=== PATIENT | female | born 1950 | race Caucasian/White ===

== ENCOUNTER 2018-12-05 11:24 | Inpatient (IN) ==
[2018-12-05] MEDS ORDERED: Sodium Chlor 0.9% Inj 500 ML IV.SIG SCH (12:00)
--- NOTE | 2018-12-05 12:05 | ED ---
HPI General Chief Complaint: Dizziness Stated Complaint: Dizzy/weakness/cough x 1 mo Time Seen by Provider: 12/05/18 11:47 Source: patient Mode of arrival: ambulatory Limitations: no limitations History of Present Illness HPI Narrative: Patient is a 68 yof PMHx sig for hypothyroidism and diabetes, recently taken off jiardance (approx one month ago) who presents with 1.5-2 months of generalized weakness, lightheadedness. Her PCP took her off the jiardance thinking that may have been a contributing factor but her symptoms have not changed. She has had significant weight loss and some decreased appetite. No chest pain nor abd pain. She does have slight dyspnea "feels winded" more easily while "doing anything, I'm just so tired." No leg swelling. complaint: Reports lightheadedness Onset (ago): month(s) Timing: gradual onset Description: Reports lightheadedness History of similar episodes: No History of trauma: No Severity: mild Relieving factors: nothing Associated symptoms: Reports other Related Data Home Medications Medication Instructions Recorded Confirmed aspirin [Aspir-Low] 81 mg PO DAILY 12/05/18 12/05/18 atorvastatin 40 mg PO QPM 12/05/18 12/05/18 calcium carbonate-vitamin D3 12/05/18 [Calcium 600 + D(3)] levothyroxine 25 mcg PO DAILY 12/05/18 12/05/18 lisinopril 5 mg PO DAILY 12/05/18 12/05/18 multivitamin 1 tab PO DAILY 12/05/18 12/05/18 omeprazole 40 mg PO DAILY 12/05/18 12/05/18 sitagliptin-metformin [Janumet] 1 tab PO BID 12/05/18 12/05/18 vitamin O97-ogpeg acid 1 tab PO DAILY 12/05/18 12/05/18 Allergies Allergy/AdvReac Type Severity Reaction Status Date / Time Penicillins Allergy Severe Rash Verified 12/05/18 11:36 Review of Systems ROS: all other systems reviewed are negative [facility] Medical History Medical History History of diverticulitis (Acute) History of high cholesterol (Acute) History of hypothyroidism (Acute) Hx of diabetes mellitus (Acute) Surgical History Surgical History History of tonsillectomy and adenoidectomy (Acute) Hx laparoscopic cholecystectomy (Acute) Social History Social History Substance History: No History of Abuse Second Hand Smoke Exposure: No Smoking Status: Former smoker Tobacco Type: E-Cigarettes How Often Do You Have a Drink Containing Alcohol: 2 to 4 times a month Recent Travel in [facility] within the Last 8 Weeks: No Recent Out of Country Travel within the Last 8 Weeks: No Immunization History Tetanus Immunization: <5 Years Exam Narrative Exam Narrative: GENERAL: Well-appearing elderly female in no acute distress SKIN: Focused skin assessment warm/dry. No rashes. HEAD: Atraumatic. Normocephalic. EYES: Pupils equal and round. No scleral icterus. No injection or drainage. ENT: No nasal bleeding or discharge. Mucous membranes pink and moist. NECK: Trachea midline. No JVD. CARDIOVASCULAR: Regular rate and rhythm. No murmur appreciated. Intact and equal peripheral pulses. RESPIRATORY: No accessory muscle use. Diminished breath sounds on the left. GASTROINTESTINAL: Abdomen soft, non-tender, nondistended. Hepatic and splenic margins not palpable. No masses palpated. MUSCULOSKELETAL: No obvious deformities. No clubbing. No cyanosis. No edema. NEUROLOGICAL: Awake and alert. No obvious cranial nerve deficits. Motor grossly within normal limits, normal strength. Normal sensation. Normal speech. PSYCHIATRIC: Appropriate mood and affect; insight and judgment normal. Course Initial Documented Vital Signs Temperature 97.7 F 12/05/18 11:31 Pulse Rate 103 H 12/05/18 11:31 Respiratory Rate 16 12/05/18 11:31 Blood Pressure 161/72 H 12/05/18 11:31 Pulse Oximetry 97 12/05/18 11:31 Last Documented Vital Signs Temperature 97.7 F 12/05/18 11:31 Pulse Rate 85 12/05/18 14:18 Respiratory Rate 16 12/05/18 14:18 Blood Pressure 144/76 H 12/05/18 14:18 Pulse Oximetry 95 12/05/18 14:18 Medical Decision Making MDM Narrative Medical decision making narrative: Patient is a 68-year-old female who presents with complaint of lightheadedness, malaise, weight loss, cough for the last 2 months with some dyspnea on exertion. She is hemodynamically stable in the emergency department with a normal pulse ox. Labs are relatively unremarkable but x-ray shows essentially white out of the left lung. CT of the chest was obtained which shows a large mass with effusion. I spoke with interventional radiology to determine if they could do a thoracentesis at the [facility] versus [place] and they stated that it was better if the patient would be at the [facility] for thoracentesis by them. She will be admitted for further evaluation and management. Medical Screen Exam Complete: Yes Emergency Medical Condition: Yes Differential Diagnosis Differential Diagnosis: Differential diagnosis includes but not limited to dehydration, anemia, acute kidney injury, cancer. Medical Records Medical records reviewed: Yes I reviewed the patient's medical records. Lab Data Lab results reviewed: Yes I reviewed the patient's lab results. Result diagrams: 12/05/18 12:00 12/05/18 12:00 Lab Results 12/05/18 12/05/18 12/05/18 Range/Units 12:00 12:00 14:50 CBC w Diff Auto diff final WBC 9.6 (4.0-11.0) th/mm3 RBC 4.92 (4.00-5.30) mil/mm3 Hgb 13.0 (11.6-15.3) gm/dL Hct 40.8 (35.0-46.0) % MCV 82.9 (80.0-100.0) fL MCH 26.4 L (27.0-34.0) pg MCHC 31.9 L (32.0-36.0) % RDW 14.3 (11.6-17.2) % Plt Count 280 (150-450) th/mm3 MPV 9.8 (7.0-11.0) fL Neut % (Auto) 73.6 H (16.0-70.0) % Lymph % (Auto) 15.8 (9.0-44.0) % Faulk % (Auto) 8.5 H (0.0-8.0) % Eos % (Auto) 1.4 (0.0-4.0) % Baso % (Auto) 0.7 (0.0-2.0) % Neut # (Auto) 7.1 (1.8-7.7) th/mm3 Lymph # (Auto) 1.5 (1.0-4.8) th/mm3 Faulk # (Auto) 0.8 (0.0-0.9) th/mm3 Eos # (Auto) 0.1 (0.0-0.4) th/mm3 Baso # (Auto) 0.1 (0.0-0.2) th/mm3 WBC Differential . Differential Comment . Sodium 135 L (136-145) meq/L Potassium 3.8 (3.5-5.1) meq/L Chloride 99 (98-107) meq/L Carbon Dioxide 30.1 (21.0-32.0) meq/L Anion Gap 6 (5-15) meq/L BUN 10 (7-18) mg/dL Creatinine 0.54 (0.50-1.00) mg/dL Estimated GFR Greater than 89 (>89) mL/min Random Glucose 169 H (74-106) mg/dL Calcium 8.9 (8.5-10.1) mg/dL Magnesium 1.6 (1.5-2.5) mg/dL Total Bilirubin 0.4 (0.2-1.0) mg/dL AST 12 L (15-37) U/L ALT 21 (10-53) U/L Alkaline Phosphatase 56 (45-117) U/L Troponin I Less than 0.02 L (0.02-0.05) ng/mL Total Protein 7.3 (6.4-8.2) g/dL Albumin 3.5 (3.4-5.0) g/dL TSH 1.690 (0.358-3.740) uIU/mL Ur Collection Type Clean catch Urine Color Yellow (Yellw/Straw) Urine Clarity Clear (Clear) Urine pH 6.5 (5.0-8.5) Ur Specific [place] Less/equal 1.005 (1.002-1.035) Urine Protein Negative (Neg-Trace) mg/dL Urine Glucose (UA) Negative (Negative) mg/dL Urine Ketones Negative (Negative) mg/dL Urine Occult Blood Negative (Negative) Urine Nitrate Negative (Negative) Urine Bilirubin Negative (Negative) Urine Urobilinogen 0.2 (Less than 2) mg/dL Ur Leukocyte Esterase Negative (Negative) Urine RBC 0-3 (0-3) /hpf Urine WBC 0-5 (0-5) /hpf Ur Squamous Epith Cells 0-5 (0-5) /hpf Micro UA Comment Culture not ind Ur Microscopic Review Microscopic reviewed Urine Culture Comments Culture not ind Imaging Data Attestation: I personally reviewed and interpreted this imaging study as follows : Radiologist's impression: Chest X-Ray 12/05/18 11:56 CONCLUSION: Moderate left pleural effusion and diffuse left lung consolidation. Central obstructing lesion cannot be excluded. CT chest may be warranted after possible thoracentesis. Head CT 12/05/18 11:56 CONCLUSION: 1. Cerebral atrophy and chronic ischemic small vessel vasculopathy. 2. Old right basal ganglia lacunar infarct. . . Chest CTA 12/05/18 12:30 CONCLUSION: 1. Large central obstructing mass left hilar region extending into the mediastinum measuring over 7 cm in dimension. 2. Consolidation/atelectasis of almost the entire left lung. 3. Small to moderate left pleural effusion. 4. No pulmonary embolism. ECG Data EKG Prior to Arrival: No Attestation: I personally reviewed and interpreted this ECG as follows: Discharge Plan Discharge Disposition Patient Disposition: Transfer To [facility] [place] Discharge Condition Condition: Stable Discharge Details Diagnosis: Lung mass, Pleural effusion on left Physicians Team ED Provider: Stephanie Howe Primary Care Provider: Sidney Thompson Attending Provider: Kasi Go Other Providers: Anupama Tavares ; Jerson Galindo Status ED Status: Admitted Patient
[2018-12-05 12:07] LABS: Baso # (Auto) 0.1 th/mm3 (0.0-0.2); Baso % (Auto) 0.7 % (0.0-2.0); Eos # (Auto) 0.1 th/mm3 (0.0-0.4); Eos % (Auto) 1.4 % (0.0-4.0); Hematocrit 40.8 % (35.0-46.0); Lymph # (Auto) 1.5 th/mm3 (1.0-4.8); Lymph % (Auto) 15.8 % (9.0-44.0); Mean Corpuscular HGB Conc 31.9 % (32.0-36.0); Mean Corpuscular Hemoglobin 26.4 pg (27.0-34.0); Mean Corpuscular Volume 82.9 fL (80.0-100.0); Mean Platelet Volume 9.8 fL (7.0-11.0); Mono # (Auto) 0.8 th/mm3 (0.0-0.9); Mono % (Auto) 8.5 % (0.0-8.0); Neut # (Auto) 7.1 th/mm3 (1.8-7.7); Neut % (Auto) 73.6 % (16.0-70.0); Platelet Count 280 th/mm3 (150-450); Red Blood Count 4.92 mil/mm3 (4.00-5.30); Red Cell Distribution Width 14.3 % (11.6-17.2); White Blood Count 9.6 th/mm3 (4.0-11.0)
[2018-12-05 12:14] LABS: Chloride 99 meq/L (98-107); Potassium 3.8 meq/L (3.5-5.1); Sodium 135 meq/L (136-145)
[2018-12-05 12:17] LABS: Albumin 3.5 g/dL (3.4-5.0); Anion Gap 6 meq/L (5-15); Blood Urea Nitrogen 10 mg/dL (7-18); Calcium 8.9 mg/dL (8.5-10.1); Carbon Dioxide 30.1 meq/L (21.0-32.0); Glucose,Random 169 mg/dL (74-106); Magnesium 1.6 mg/dL (1.5-2.5)
[2018-12-05 12:20] LABS: Alanine Aminotransferase 21 U/L (10-53); Aspartate Aminotransferase 12 U/L (15-37); Glomerular Filtration Rate Greater Than 89 mL/min (>89)
[2018-12-05 12:22] LABS: Total Protein 7.3 g/dL (6.4-8.2)
[2018-12-05 12:23] LABS: Alkaline Phosphatase 56 U/L (45-117)
--- NOTE | 2018-12-05 12:31 | XR ---
EXAM DATE: 12/05/2018 12:23 PM EST AGE/SEX: 68 years / Female INDICATIONS: . Dizzy. CLINICAL DATA: This is the patient's initial encounter. Patient reports that signs and symptoms have been present for 1 month and indicates a pain score of 0/10. MEDICAL/SURGICAL HISTORY: None. None. COMPARISON: No prior exams available for comparison. FINDINGS: PA and lateral views of the chest demonstrate moderate left pleural effusion and left lung consolidat ion. Right lung is clear. The cardiomediastinal contours are unremarkable. Osseous structures are int act. CONCLUSION: Moderate left pleural effusion and diffuse left lung consolidation. Central obstructing lesion cannot be excluded. CT chest may be warranted after possible thoracentesis. Electronically signed by: Ramon Tapia MD Board Certified Radiologist 12/05/2018 12:29 PM EST
--- NOTE | 2018-12-05 13:26 | CT ---
EXAM DATE: 12/05/2018 1:19 PM EST AGE/SEX: 68 years / Female INDICATIONS: Weakness 1 motnh CLINICAL DATA: This is the patient's initial encounter. Patient reports that signs and symptoms have been present for 1 month and indicates a pain score of 0/10. MEDICAL/SURGICAL HISTORY: Diverticulitis. Diabetes. Hypothyroidism. Cholecystectomy. Tonsillecto my. RADIATION DOSE: 9.43 CTDI (mGy) COMPARISON: No prior exams available for comparison. TECHNIQUE: Volumetric scanning was performed using a multi-row detector CT scanner during bolus infu [place] of 74ML ml Omnipaque 350 (iohexol) nonionic water-soluble contrast as a single exam dose. The d margot was post processed with a variety of visualization algorithms including full volume maximum inten sity projection and sliding thin slab reformation. Using automated exposure control and adjustment of the mA and/or kV according to patient size, radiation dose was kept as low as reasonably achievable to obtain optimal diagnostic quality images. DICOM format image data is available electronically for review and comparison. FINDINGS: Pulmonary Arteries: No filling defects are seen in the pulmonary arteries out to the subsegmental ve ssels. The left and right pulmonary arteries are normal in diameter. Lung: Consolidation/atelectasis throughout the majority of the left lung secondary to an obstructing central mass which is contiguous with subcarinal mediastinal adenopathy measuring approximately 7.0 x 6.2 cm. Portions of the left lower lobe and lingular rhonchus or obstructed.. 7 mm nodule in the ri ght upper lobe posterior medially. Effusion: Small moderate left pleural effusion. Mediastinum: No evidence of mediastinal or hilar adenopathy. Other: The axilla is unremarkable. Extensive enlargement of the thyroid lobes likely including shai s. CONCLUSION: 1. Large central obstructing mass left hilar region extending into the mediastinum measuring over 7 cm in dimension. 2. Consolidation/atelectasis of almost the entire left lung. 3. Small to moderate left pleural effusion. 4. No pulmonary embolism. Electronically signed by: Ramon Tapia MD Board Certified Radiologist 12/05/2018 1:25 PM EST
--- NOTE | 2018-12-05 13:29 | CT ---
EXAM DATE: 12/05/2018 1:17 PM EST AGE/SEX: 68 years / Female INDICATIONS: Dizziness and Weakness 1 month CLINICAL DATA: This is the patient's initial encounter. Patient reports that signs and symptoms have been present for 1 month and indicates a pain score of 0/10. MEDICAL/SURGICAL HISTORY: Diverticulitis. Diabetes. Hypothyroidism. Cholecystectomy. Tonsillecto my. RADIATION DOSE: 59.97 CTDI (mGy) COMPARISON: No prior exams available for comparison. TECHNIQUE: CT of the head without contrast. Using automated exposure control and adjustment of the mA and/or kV according to patient size, radiation dose was kept as low as reasonably achievable to ob tain optimal diagnostic quality images. DICOM format image data is available electronically for revi ew and comparison. FINDINGS: Cerebrum: The ventricles are normal for age. Cerebral atrophy. Areas low-density in the white matter . Old right basal ganglia lacunar infarcts. No evidence of midline shift, mass lesion, hemorrhage or acute infarction. No extraaxial fluid collections are seen. Posterior Fossa: The cerebellum and brainstem are intact. The 4th ventricle is midline. The cerebe llopontine angle is unremarkable. Extracranial: The visualized portion of the orbits is intact. Skull: The calvaria is intact. No evidence of skull fracture. CONCLUSION: 1. Cerebral atrophy and chronic ischemic small vessel vasculopathy. 2. Old right basal ganglia lacunar infarct. . . Electronically signed by: Ramon Tapia MD Board Certified Radiologist 12/05/2018 1:27 PM EST
--- NOTE | 2018-12-05 14:11 | ECG ---
Date Performed: 12/05/2018 Time Performed: 12:02:01 PTAGE: 68 years EKG: Sinus rhythm POSSIBLE LEFT ATRIAL ENLARGEMENT BORDERLINE ECG NO PREVIOUS TRACING DOCTOR: Michael Singletary Interpretating Date/Time 12/05/2018 14:08:47
[2018-12-05] MEDS ORDERED: Acetaminophen 325 MG Tablet PO PRN (14:32)
[2018-12-05] MEDS ORDERED: Dextrose 50% in Water 50 ML Vial IV.PUSH PRN (14:37)
[2018-12-05 14:53] LABS: Bilirubin,Urine Negative (Negative); Clarity,Urine Clear (Clear); Color,Urine Yellow (Yellw/Straw); Glucose,Urine (UA) Negative (Negative); Leukocyte Esterase,Urine Negative (Negative); Nitrite,Urine Negative (Negative); PH,Urine 6.5 (5.0-8.5); Specific Gravity,Urine Less/Equal 1.005 (1.002-1.035); Urobilinogen,Urine 0.2 mg/dL (Less than 2)
[2018-12-05 15:01] LABS: RBC,Urine 0-3 /hpf (0-3); Squamous Epithelial Cell,Urine 0-5 /hpf (0-5); WBC,Urine 0-5 /hpf (0-5)
[2018-12-05] MEDS: Sod Chloride 0.9% Inj 1,000 ML IV.CONT SCH (15:13)
--- NOTE | 2018-12-05 15:28 | P.HPIM ---
History of Present Illness Primary Care Physician: Sidney Thompson Chief Complaint: Weight Loss, Dyspnea History of Present Illness: Mrs. Haines is a 68 year old female. She came to the hospital secondary to weakness and shortness of breath. Chest imaging shows complete whiteout of the left lung. Additional finding is a 7 cm mass at the mediastinum which may be causing the left lung findings. She has a past history of smoking for the past 2 years she is quit tobacco use and uses an e- cigarette. She has not experienced any chest pain. No abnormal rashes or lymphadenopathy. Weight loss has been approximate 30 pounds. No fevers. No diaphoresis. Inpatient Certification Inpatient Certification: I certify that the inpatient services were ordered in accordance with Medicare regulations governing the order. This includes certification that hospital inpatient services are reasonable and necessary and in the case of services not specified as inpatient-only under 42 CFR 419.22(n), that they are appropriately provided as inpatient services in accordance to with the 2-midnight benchmark under 43 CFR 412.3(e) Estimated Total Length of Stay (Days): 5 Plans for Post Hospital Care: Home Review of Systems Constitutional: No fevers, no chills no night sweats, fatigue, weakness, weight loss Eyes: No eye pain, no blurry vision, no loss of vision ENT: No sore throat, no ear pain, no rhinorrhea Cardiovascular: No chest pain, no tachycardia, no palpitations, no syncope Respiratory: No wheezing, no cough, shortness of breath Gastrointestinal: No abdominal pain, no black tarry stools, no bright red blood per rectum, no vomiting, no diarrhea Musculoskeletal: No joint pain, no muscle cramps, no stiffness Integumentary: No rash, no ulcers, no drainage Neurologic: No sensory loss, no loss of motor function, no dizziness Psychiatric: No behavioral changes, no hallucinations, no suicidal ideations [facility] Medical History Medical History History of diverticulitis (Acute) History of high cholesterol (Acute) History of hypothyroidism (Acute) Hx of diabetes mellitus (Acute) Surgical History Surgical History History of tonsillectomy and adenoidectomy (Acute) Hx laparoscopic cholecystectomy (Acute) Family History Family History Father Coronary artery disease Other Osteoarthritis Social History Social History Substance History: No History of Abuse Second Hand Smoke Exposure: No Smoking Status: Former smoker Tobacco Type: E-Cigarettes How Often Do You Have a Drink Containing Alcohol: 2 to 4 times a month Recent Travel in [facility] within the Last 8 Weeks: No Recent Out of Country Travel within the Last 8 Weeks: No Immunization History Tetanus Immunization: <5 Years Medications and Allergies Allergies Allergy/AdvReac Type Severity Reaction Status Date / Time Penicillins Allergy Severe Rash Verified 12/05/18 11:36 Home Medications Medication Instructions Recorded Confirmed Type aspirin [Aspir-Low] 81 mg PO DAILY 12/05/18 12/05/18 History atorvastatin 40 mg PO QPM 12/05/18 12/05/18 History calcium carbonate-vitamin D3 12/05/18 History [Calcium 600 + D(3)] levothyroxine 25 mcg PO DAILY 12/05/18 12/05/18 History lisinopril 5 mg PO DAILY 12/05/18 12/05/18 History multivitamin 1 tab PO DAILY 12/05/18 12/05/18 History omeprazole 40 mg PO DAILY 12/05/18 12/05/18 History sitagliptin-metformin [Janumet] 1 tab PO BID 12/05/18 12/05/18 History vitamin Z47-kbglc acid 1 tab PO DAILY 12/05/18 12/05/18 History Active Medications: Active Medications Acetaminophen (Tylenol) 650 mg PO Q4H PRN PRN Reason: Temp > 100.4 Hydrocodone Bitart/Acetaminophen ([place] 10/325) 1 tab PO Q4H PRN PRN Reason: Pain 7 to 10 Hydrocodone Bitart/Acetaminophen ([place] 5/325) 1 tab PO Q4H PRN PRN Reason: Pain 3 to 6 Al Hydroxide/Mg Hydroxide (Milk Of Magnesia Liq) 30 ml PO Q12H PRN PRN Reason: Mild Constipation Dextrose (D50w Vial) 50 ml IV.PUSH UNSCH PRN PRN Reason: PER HYPOGLYCEMIA PROTOCOL Glucagon (Glucagon Inj) 1 mg OTHER PRN PRN PRN Reason: for Hypoglycemia Protocol Sodium Chloride (Ns Inj) 1,000 mls @ 80 mls/hr IV.CONT .[id number] CHRISTIANO Last Admin: 12/05/18 15:13 Dose: 80 mls/hr Insulin Aspart (Novolog Insulin Correctional Sugar Inj) 0 unit SQ ACHS CHRISTIANO; Protocol Ondansetron HCl (Zofran Inj) 4 mg IV.PUSH Q6H PRN PRN Reason: NAUSEA OR VOMITING Sodium Chloride (Ns Flush) 2 ml IV.FLUSH PRN PRN PRN Reason: FLUSH AFTER USING IV ACCESS Sodium Chloride (Ns Flush) 2 ml IV.FLUSH BID CHRISTIANO Sodium Chloride (Ns Flush) 2 ml IV.FLUSH PRN PRN PRN Reason: FLUSH AFTER USING IV ACCESS Physical Exam Vital signs: Vital Signs 12/05/18 11:31 12/05/18 11:56 12/05/18 14:18 Temperature 97.7 F Pulse Rate 103 H 85 Respiratory Rate 16 16 Blood Pressure 161/72 H 144/76 H Pulse Oximetry 97 95 95 Intake & Output 12/04/18 12/05/18 12/05/18 18:59 06:59 18:59 Intake Total 500 / 500 Balance 500 / 500 Weight 90.5 kg Intake: IV 500 / 500 NS Inj 500 ML @ 1000 mls/hr IV. 500 / 500 SIG BOLUS CHRISTIANO Rx#:[id number] Narrative: GENERAL: NAD, A&Ox3 HEAD: Normocephalic. NECK: Supple, trachea midline. No lymphadenopathy. EYES: No scleral icterus. No injection or drainage. CARDIOVASCULAR: Regular rate and rhythm without murmurs, gallops, or rubs. RESPIRATORY: Breath sounds are absent on the left. No accessory muscle use. GASTROINTESTINAL: Abdomen soft, non-tender, nondistended. MUSCULOSKELETAL: No cyanosis, or edema. SKIN: Warm and dry. NEURO: No focal neurological deficits. Results Labs CBC & Chem 7: 12/05/18 12:00 12/05/18 12:00 Imaging Impressions Chest X-Ray 12/05/18 11:56 CONCLUSION: Moderate left pleural effusion and diffuse left lung consolidation. Central obstructing lesion cannot be excluded. CT chest may be warranted after possible thoracentesis. Head CT 12/05/18 11:56 CONCLUSION: 1. Cerebral atrophy and chronic ischemic small vessel vasculopathy. 2. Old right basal ganglia lacunar infarct. . . Chest CTA 12/05/18 12:30 CONCLUSION: 1. Large central obstructing mass left hilar region extending into the mediastinum measuring over 7 cm in dimension. 2. Consolidation/atelectasis of almost the entire left lung. 3. Small to moderate left pleural effusion. 4. No pulmonary embolism. Caprini VTE Risk Assessment Caprini VTE Risk Assessment: No/Low Risk (score <= 1) Caprini Risk Assessment Model: Point Value = 1 Point Value = 2 Point Value = 3 Point Value = 5 Age 41-60 Minor surgery BMI > 25 kg/m2 Swollen legs Varicose veins or History of unexplained or recurrent spontaneous Oral contraceptives or hormone replacement Sepsis (< 1 month) Serious lung disease, including pneumonia (< 1 month) Abnormal pulmonary function Acute myocardial infarction Congestive heart failure (< 1 month) History of inflammatory bowel disease Medical patient at bed rest Age 61-74 Arthroscopic surgery Major open surgery (> 45 min) Laparoscopic surgery (> 45 min) Malignancy Confined to bed (> 72 hours) Immobilizing plaster cast Central venous access Age >= 75 History of VTE Family history of VTE Factor V Leiden Prothrombin [id number] Lupus anticoagulant Anticardiolipin antibodies Elevated serum homocysteine Heparin-induced thrombocytopenia Other congenital or acquired thrombophilia Stroke (< 1 month) Elective arthroplasty Hip, pelvis, or leg fracture Acute spinal cord injury (< 1 month) Prophylaxis Regimen: Total Risk Factor Score Risk Level Prophylaxis Regimen 0-1 Low Early ambulation 2 Moderate Order ONE of the following: *Sequential Compression Device (SCD) *Heparin 5000 units SQ BID 3-4 Higher Order ONE of the following medications: *Heparin 5000 units SQ TID *Enoxaparin/Lovenox 40 mg SQ daily (WT < 150 kg, CrCl > 30 mL/min) *Enoxaparin/Lovenox 30 mg SQ daily (WT < 150 kg, CrCl > 10-29 mL/min) *Enoxaparin/Lovenox 30 mg SQ BID (WT < 150 kg, CrCl > 30 mL/min) AND/OR *Sequential Compression Device (SCD) 5 or more Highest Order ONE of the following medications: *Heparin 5000 units SQ TID (Preferred with Epidurals) *Enoxaparin/Lovenox 40 mg SQ daily (WT < 150 kg, CrCl > 30 mL/min) *Enoxaparin/Lovenox 30 mg SQ daily (WT < 150 kg, CrCl > 10-29 mL/min) *Enoxaparin/Lovenox 30 mg SQ BID (WT < 150 kg, CrCl > 30 mL/min) AND *Sequential Compression Device (SCD) Assessment and Plan Plan 68-year-old female admitted secondary to whiteout of left lung, pleural effusion at left lung, and 7 cm mediastinal mass Pleural effusion left lung Whiteout left lung 7 cm mediastinal mass Thoracentesis planned Oncology consult Pulmonology consult Interventional radiology consult As needed pain treatments Oxygen as needed Attempt cytology now, direct tissue biopsy may be needed later May need abdomen/pelvis and head imaging, deferred for now given contrast study today Diabetes mellitus type 2 Follow blood sugars Insulin sliding scale Diabetic diet DVT SCDs
[2018-12-05 15:47] LABS: Prothrombin Time 10.1 sec (9.8-11.6)
[2018-12-05] MEDS: Insulin NovoLOG Aspart Correctional Sugar Inj SQ SCH ×2 (18:54→20:25)
--- NOTE | 2018-12-06 01:42 | MB ---
cc: Minh Tavares MD DATE: 12/05/2018 REASON FOR CONSULTATION: Consult requested by hospitalist for evaluation of left lung mass. HISTORY OF PRESENT ILLNESS: This is a 68-year-old, very pleasant white female. She has a history of heavy cigarette smoking, 1-2 packs a day for many years. However about 2 years ago, she went on electronic cigarettes. She presented to the emergency room complaining of shortness of breath and weakness. She has a chest x-ray which shows whiteout of left lung. The CAT scan of the chest shows a 7 cm mass in the left hilar area extending into the mediastinum with complete opacification of the left lung. The patient denies any weight loss or anorexia. The rest of the review of systems is negative. PAST MEDICAL HISTORY: Diverticulosis, hypercholesterolemia, hypothyroidism, diabetes mellitus, hypertension. PAST SURGICAL HISTORY: Tonsillectomy, laparoscopic cholecystectomy. ALLERGIES: PENICILLIN. MEDICATIONS PRIOR TO COMING TO THE HOSPITAL: 1. Aspirin. 2. Atorvastatin. 3. Calcium with vitamin D3. 4. Levothyroxine. 5. Lisinopril. 6. Multivitamin. 7. Omeprazole. 8. Germentin. 9. Vitamin B12. 10. Folic acid. FAMILY HISTORY: None for malignancy. SOCIAL HISTORY: The patient used to smoke cigarettes, 1-2 packs a day for many years, quit about 2 years ago. She occasionally drinks alcohol. PHYSICAL EXAMINATION: GENERAL: A well-developed, well-nourished white female, in no apparent distress. VITAL SIGNS: Temperature 98.3, heart rate is 95, blood pressure 180/82, O2 saturation 95% on room air. HEAD, EYES, EARS, NOSE, AND THROAT: Pupils equal, round, reactive to light and accommodation, extraocular movements intact. Anicteric. No oral lesions noted. No thrush noted. NECK: Supple. No JVD. No masses noted. LUNGS: No breath sounds on the left side right side is clear. HEART: Regular rate and rhythm. No murmur heard. ABDOMEN: Soft and nontender. No hepatosplenomegaly. No abnormal bowel sounds. No guarding or rigidity noted. EXTREMITIES: No pedal edema. No cyanosis, no clubbing. NEUROLOGIC: Awake, alert, oriented x 3. Sensory and motor seem to be intact. SKIN: No bruises or petechiae noted. BREASTS: No masses noted. LYMPH NODES: No cervical, supraclavicular, or axillary lymphadenopathy noted. BACK: There is no spinal tenderness noted. ASSESSMENT: A large 7 cm left hilar mass extending into the mediastinum with complete opacification of the left lung, most likely due to endobronchial lesion. This is most likely consistent with bronchogenic carcinoma until proven otherwise given history of heavy cigarette smoking. PLAN: I have reviewed her available records, and I have discuss with the patient regarding my clinical suspicion for lung cancer. I reviewed the chest x-ray and CAT scan of the chest findings. We also discuss that the CT of the head does not show any metastasis, but she will need MRI of the brain to make sure that she does not have any occult brain metastasis. Pulmonary has been consulted. Most likely, the patient will have bronchoscopy as I suspect that she has endobronchial lesion causing complete opacification of the left lung. Once we have the tissue diagnosis, then we will discuss with the patient regarding the treatment plan. I will consult radiation oncology for Friday to evaluate for radiation to the left hilar area in the hope that her left lung will open up, and she will have increased aeration to alleviate the symptoms of shortness of breath. Further recommendations based on her hospital stay. Thank you for asking my opinion. MD DOC Kerns/gabriel , 12:14 AM , 12:24 AM KAMILLA
[2018-12-06] MEDS: Sod Chloride 0.9% Inj 1,000 ML IV.CONT SCH ×2 (03:24→17:36)
[2018-12-06] MEDS ORDERED: Chlorhexidine Gluconate 2% 1 Pack (2 Cloths) TOPICAL ONE (07:19)
[2018-12-06] MEDS ORDERED: Sodium Chlor 0.9% Inj 500 ML IV.SIG SCH (08:00)
[2018-12-06 09:06] LABS: Baso % (Auto) 0.4 % (0.0-2.0); Eos # (Auto) 0.2 th/mm3 (0.0-0.4); Eos % (Auto) 2.6 % (0.0-4.0); Hematocrit 37.3 % (35.0-46.0); Hemoglobin 12.1 gm/dL (11.6-15.3); Lymph # (Auto) 1.8 th/mm3 (1.0-4.8); Lymph % (Auto) 21.3 % (9.0-44.0); Mean Corpuscular HGB Conc 32.5 % (32.0-36.0); Mean Corpuscular Hemoglobin 27.1 pg (27.0-34.0); Mean Corpuscular Volume 83.3 fL (80.0-100.0); Mean Platelet Volume 10.3 fL (7.0-11.0); Mono # (Auto) 0.7 th/mm3 (0.0-0.9); Mono % (Auto) 7.9 % (0.0-8.0); Neut # (Auto) 5.8 th/mm3 (1.8-7.7); Neut % (Auto) 67.8 % (16.0-70.0); Platelet Count 262 th/mm3 (150-450); Red Blood Count 4.47 mil/mm3 (4.00-5.30); Red Cell Distribution Width 15.6 % (11.6-17.2); White Blood Count 8.5 th/mm3 (4.0-11.0)
[2018-12-06 09:30] LABS: Albumin 2.9 g/dL (3.4-5.0); Anion Gap 8 meq/L (5-15); Aspartate Aminotransferase 10 U/L (15-37); Blood Urea Nitrogen 8 mg/dL (7-18); Calcium 8.4 mg/dL (8.5-10.1); Carbon Dioxide 28.4 meq/L (21.0-32.0); Chloride 105 meq/L (98-107); Glomerular Filtration Rate Greater Than 89 mL/min (>89); Glucose,Random 120 mg/dL (74-106); Potassium 3.6 meq/L (3.5-5.1); Sodium 141 meq/L (136-145)
[2018-12-06 09:31] LABS: Alanine Aminotransferase 18 U/L (10-53)
[2018-12-06 09:33] LABS: Alkaline Phosphatase 51 U/L (45-117); Total Protein 6.5 g/dL (6.4-8.2)
[2018-12-06] MEDS: Insulin NovoLOG Aspart Correctional Sugar Inj SQ SCH ×4 (10:11→20:59)
--- NOTE | 2018-12-06 10:23 | P.PNONC ---
Subjective Interval history: Bathroom upon entering. Ambulated to bed without difficulty or assistance. Reports shortness of breath with exertion and fatigue for the last 2 months. Denies any chest pain, nausea/vomiting or shortness of breath while in bed. Objective Vital Signs/Intake & Output: Vital Signs 12/05/18 11:31 12/05/18 11:56 12/05/18 14:18 Temperature 97.7 F Pulse Rate 103 H 85 Respiratory Rate 16 16 Blood Pressure 161/72 H 144/76 H Pulse Oximetry 97 95 95 12/05/18 17:03 12/05/18 17:50 12/05/18 20:00 Temperature 98.6 F 98.5 F Pulse Rate 90 93 H 93 H Respiratory Rate 16 17 16 Blood Pressure 142/78 H 175/83 H 160/75 H Pulse Oximetry 97 97 95 12/05/18 22:25 12/06/18 00:00 12/06/18 03:15 Temperature 98.3 F 97.9 F Pulse Rate 95 H 83 86 Respiratory Rate 16 16 Blood Pressure 180/82 H 149/69 H Pulse Oximetry 95 94 L 12/06/18 04:00 12/06/18 07:24 Temperature 97.9 F Pulse Rate 81 77 Respiratory Rate 18 Blood Pressure 150/73 H Pulse Oximetry 95 Intake & Output 12/05/18 12/06/18 12/06/18 18:59 06:59 18:59 Intake Total 500 / 500 1240 / 1240 Balance 500 / 500 1240 / 1240 Weight 63.7 kg 63.8 kg Intake: IV 500 / 500 1000 / 1000 NS Inj 1,000 ML @ 80 mls/hr IV. 1000 / 1000 CONT .[id number] CHRISTIANO Rx#: [id number] NS Inj 500 ML @ 1000 mls/hr IV. 500 / 500 SIG BOLUS CHRISTIANO Rx#:[id number] Oral 240 / 240 Other: # Voids 3 Date of Last Bowel Movement 12/04/18 Weight On Admission 63.7 kg Result Diagrams: 12/06/18 06:59 12/06/18 05:59 Laboratory Results: Laboratory Results - last 24 hr 12/05/18 12/05/18 12/05/18 12:00 12:00 12:00 CBC w Diff Auto diff final WBC 9.6 RBC 4.92 Hgb 13.0 Hct 40.8 MCV 82.9 MCH 26.4 L MCHC 31.9 L RDW 14.3 Plt Count 280 MPV 9.8 Neut % (Auto) 73.6 H Lymph % (Auto) 15.8 Chester % (Auto) 8.5 H Eos % (Auto) 1.4 Baso % (Auto) 0.7 Neut # (Auto) 7.1 Lymph # (Auto) 1.5 Chester # (Auto) 0.8 Eos # (Auto) 0.1 Baso # (Auto) 0.1 WBC Differential . Differential Comment . PT 10.1 INR 1.0 APTT 28.0 Sodium 135 L Potassium 3.8 Chloride 99 Carbon Dioxide 30.1 Anion Gap 6 BUN 10 Creatinine 0.54 Estimated GFR Greater than 89 POC Glucose Random Glucose 169 H Calcium 8.9 Magnesium 1.6 Total Bilirubin 0.4 AST 12 L ALT 21 Alkaline Phosphatase 56 Troponin I Less than 0.02 L Total Protein 7.3 Albumin 3.5 TSH 1.690 Ur Collection Type Urine Color Urine Clarity Urine pH Ur Specific Juliette Urine Protein Urine Glucose (UA) Urine Ketones Urine Occult Blood Urine Nitrate Urine Bilirubin Urine Urobilinogen Ur Leukocyte Esterase Urine RBC Urine WBC Ur Squamous Epith Cells Micro UA Comment Ur Microscopic Review Urine Culture Comments 12/05/18 12/05/18 12/05/18 14:50 18:01 19:46 CBC w Diff WBC RBC Hgb Hct MCV MCH MCHC RDW Plt Count MPV Neut % (Auto) Lymph % (Auto) Chester % (Auto) Eos % (Auto) Baso % (Auto) Neut # (Auto) Lymph # (Auto) Chester # (Auto) Eos # (Auto) Baso # (Auto) WBC Differential Differential Comment PT INR APTT Sodium Potassium Chloride Carbon Dioxide Anion Gap BUN Creatinine Estimated GFR POC Glucose 182 H 148 H Random Glucose Calcium Magnesium Total Bilirubin AST ALT Alkaline Phosphatase Troponin I Total Protein Albumin TSH Ur Collection Type Clean catch Urine Color Yellow Urine Clarity Clear Urine pH 6.5 Ur Specific Juliette Less/equal 1.005 Urine Protein Negative Urine Glucose (UA) Negative Urine Ketones Negative Urine Occult Blood Negative Urine Nitrate Negative Urine Bilirubin Negative Urine Urobilinogen 0.2 Ur Leukocyte Esterase Negative Urine RBC 0-3 Urine WBC 0-5 Ur Squamous Epith Cells 0-5 Micro UA Comment Culture not ind Ur Microscopic Review Microscopic reviewed Urine Culture Comments Culture not ind 12/06/18 12/06/18 12/06/18 05:59 06:59 08:06 CBC w Diff WBC 8.5 RBC 4.47 Hgb 12.1 Hct 37.3 MCV 83.3 MCH 27.1 MCHC 32.5 RDW 15.6 Plt Count 262 MPV 10.3 Neut % (Auto) 67.8 Lymph % (Auto) 21.3 Chester % (Auto) 7.9 Eos % (Auto) 2.6 Baso % (Auto) 0.4 Neut # (Auto) 5.8 Lymph # (Auto) 1.8 Chester # (Auto) 0.7 Eos # (Auto) 0.2 Baso # (Auto) 0.0 WBC Differential . Differential Comment Auto diff final PT INR APTT Sodium 141 Potassium 3.6 Chloride 105 Carbon Dioxide 28.4 Anion Gap 8 BUN 8 Creatinine 0.39 L Estimated GFR Greater than 89 POC Glucose 132 H Random Glucose 120 H Calcium 8.4 L Magnesium Total Bilirubin 0.4 AST 10 L ALT 18 Alkaline Phosphatase 51 Troponin I Total Protein 6.5 D Albumin 2.9 L D TSH Ur Collection Type Urine Color Urine Clarity Urine pH Ur Specific Juliette Urine Protein Urine Glucose (UA) Urine Ketones Urine Occult Blood Urine Nitrate Urine Bilirubin Urine Urobilinogen Ur Leukocyte Esterase Urine RBC Urine WBC Ur Squamous Epith Cells Micro UA Comment Ur Microscopic Review Urine Culture Comments Imaging Studies: Impressions Chest X-Ray 12/05/18 11:56 CONCLUSION: Moderate left pleural effusion and diffuse left lung consolidation. Central obstructing lesion cannot be excluded. CT chest may be warranted after possible thoracentesis. Head CT 12/05/18 11:56 CONCLUSION: 1. Cerebral atrophy and chronic ischemic small vessel vasculopathy. 2. Old right basal ganglia lacunar infarct. . . Chest CTA 12/05/18 12:30 CONCLUSION: 1. Large central obstructing mass left hilar region extending into the mediastinum measuring over 7 cm in dimension. 2. Consolidation/atelectasis of almost the entire left lung. 3. Small to moderate left pleural effusion. 4. No pulmonary embolism. Medications: Active Medications Generic Name Dose Route Start Last Admin Trade Name Freq PRN Reason Stop Dose Admin Clonidine HCl 0.1 mg 12/05/18 19:42 12/05/18 23:12 Catapres PO 0.1 mg Q6H PRN Administration SBP>180, DBP>110 Sodium Chloride 1,000 mls @ 80 mls/hr 12/05/18 14:45 12/06/18 03:24 Ns Inj IV.CONT 80 mls/hr .[id number] CHRISTIANO Administration Insulin Aspart 0 unit 12/05/18 17:00 12/05/18 20:25 Novolog Insulin Correctional Sugar Inj SQ Not Given ACHS CHRISTIANO Protocol Sodium Chloride 2 ml 12/05/18 21:00 12/05/18 20:25 Ns Flush IV.FLUSH Not Given BID CHRISTIANO Objective Remarks: GENERAL: Well-nourished, well-developed female patient, in no acute distress. SKIN: Pale, warm and dry. HEAD: Normocephalic. EYES: No scleral icterus. No injection or drainage. NECK: Supple, trachea midline. CARDIOVASCULAR: Regular rate and rhythm without murmurs. RESPIRATORY: Absent breath sounds to posterior left lower lobe. Nonlabored. GASTROINTESTINAL: Abdomen soft, non-tender, nondistended. EXTREMITIES: No cyanosis, or edema. MUSCULOSKELETAL: Adequate muscle tone. NEUROLOGICAL: No obvious focal deficit. Awake, alert, and oriented x3. PSYCHIATRIC: Appropriate mood and affect; insight and judgment normal. Assessment/Plan - Plan This is a 68-year-old female patient who was admitted to the hospital with a complaint of shortness of breath and weakness for the last couple of months. Imaging shows a large mass to the left hilar area extending to the mediastinum, with a complete whiteout of the left lung. Plan: 1. Lung mass, awaiting bronchoscopy with biopsy and ultrasound-guided thoracentesis with cytology. Plan to consult radiation oncology. 2. CBC and CMP in a.m. 3. Continue supportive measures. - Attending Statement The exam, history, and the medical decision-making described in the above note were completed with the assistance of the mid-level provider. I reviewed and agree with the findings presented. I attest that I had a [id number] encounter with the patient on the same day, and personally performed and documented my assessment and findings in the medical record. Patient just came back from radiology office after thoracentesis. Patient will undergo bronchoscopy and biopsy of the lesion for confirmation of bronchogenic carcinoma diagnosis. Consult IR in the morning
--- NOTE | 2018-12-06 15:12 | XR ---
EXAM DATE: 12/06/2018 2:54 PM EST AGE/SEX: 68 years / Female INDICATIONS: Post left side thoracentesis. CLINICAL DATA: This is the patient's subsequent encounter. Patient reports that signs and symptoms h ave been present for 2 days and indicates a pain score of 5/10. MEDICAL/SURGICAL HISTORY: Diverticulitis. Diabetes. Hypothyroidism. Cholecystectomy. Tonsill ectomy. COMPARISON: [facility], CHEST 2V PA&LAT, 12/05/2018. . FINDINGS: Left effusion persists. Consolidation left lung. No pneumothorax. No significant right effusion. Vasc ular congestion pattern in the right lung. CONCLUSION: No pneumothorax identified post left thoracentesis. Electronically signed by: Stephon Guzman MD Board Certified Radiologist 12/06/2018 3:11 PM EST
--- NOTE | 2018-12-06 15:28 | MB ---
cc: Jerson Galindo MD DATE: 12/06/2018 HISTORY OF PRESENT ILLNESS: The patient is a 68-year-old female with past medical history of hyperlipidemia, hypothyroidism, diabetes mellitus, who presented to [facility] ED yesterday for generalized weakness and shortness of breath. The patient reports shortness of breath with exertion and occasional dry cough. She denies any chest pain, wheezing or any constitutional symptoms. She quit smoking 2 years ago and now she smokes e-cigarettes. She has a [id number] history of smoking. She denies any use of oxygen or bronchodilators at home. The patient reports approximately a 30-pound weight loss. She denies any constitutional symptoms or diaphoresis. A chest x-ray on admission showed a moderate left pleural effusion and diffuse left consolidation. She subsequently underwent a CTA of the chest which showed no evidence of pulmonary embolism; however, it showed a large central obstructing mass in the left hilar region extending into the mediastinum measuring over 7 cm in dimension, also atelectasis/consolidation in the left lung with moderate left pleural effusion. She is scheduled for ultrasound-guided thoracentesis this afternoon by interventional radiology. The patient is on room air oxygen. PAST MEDICAL HISTORY: Significant for hyperlipidemia, hypothyroidism, diabetes, diverticulitis. PAST SURGICAL HISTORY: Previous tonsillectomy and adenoidectomy, previous laparoscopic cholecystectomy. ALLERGIES: PENICILLIN SIDE EFFECT RASH. FAMILY HISTORY: Coronary artery disease and osteoarthritis runs in the family. SOCIAL HISTORY: Ex-smoker with a 13-[id number]-swmz history of smoking. Occasional drinker. MEDICATIONS: Include DuoNeb. HOME MEDICATIONS: Include: 1. Vitamin B12. 2. Aspirin. 3. Lisinopril. 4. Levothyroxine. 5. Atorvastatin. 6. Omeprazole. REVIEW OF SYSTEMS: Review of systems is unremarkable. PHYSICAL EXAMINATION: GENERAL: A 68-year-old female lying in bed in no acute respiratory distress on room air oxygen. VITAL SIGNS: Temperature 97.9, pulse of 77, respiratory rate 18, blood pressure 150/73, saturation 95% on room air. HEENT: Atraumatic, normocephalic. Pupils are equal, round, reactive to light and accommodation. Extraocular muscles intact. Conjunctivae pink. Nonicteric sclerae. Oral mucosa within normal. NECK: Supple. No JVD, adenopathy or thyromegaly. Trachea in the midline. CARDIOVASCULAR: Regular rate and rhythm. Normal S1, S2. No murmurs, rubs or gallops noted. PULMONARY: Diminished breath sounds on the left side. No crackles or wheezing. ABDOMEN: Soft, nontender. No distention. Positive bowel sounds. EXTREMITIES: No cyanosis, clubbing or edema. NEUROLOGIC: No focal sensory deficit. LABORATORY DATA: WBC 8.5, hemoglobin 12, hematocrit 37, platelet count of 262. Sodium 141, potassium 3.6, chloride 105, CO2 28, BUN 8, creatinine 0.39, glucose 132. INR 1.0, PT 10.1, PTT 28. RADIOGRAPHIC STUDIES: A CT of the chest showed left hilar mass extending into the mediastinum measuring 7 cm in dimensions. Atelectasis/consolidation in the left lung with moderate left pleural effusion. No evidence of pulmonary embolism. IMPRESSION: 1. Large left hilar obstructing mass extending into the mediastinum, 7 cm in size. 2. Consolidation/atelectasis of the left lung. 3. Moderate left pleural effusion. 4. History of tobacco abuse. 5. Hypothyroidism. 6. Diabetes mellitus. 7. Hyperlipidemia. RECOMMENDATIONS: 1. Oxygen p.r.n. to maintain sats above 92%. 2. Place on bronchodilators on a p.r.n. basis. 3. Patient scheduled for ultrasound-guided thoracentesis this afternoon. We will send pleural fluid for analysis, culture and cytology. 4. We will proceed with bronchoscopy and transbronchial biopsy, rule out bronchogenic carcinoma. The patient is agreeable to the procedure. 5. The patient is being followed by oncology service and plan to consult radiation oncology. 6. A PFT to assess the severity of her obstructive lung disease. Further recommendations will be based on hospital course. Thank you for this consultation and allowing me to participate in this patient's care. MD MAYA York/chris , 11:27 AM , 11:37 AM
[2018-12-06 16:05] LABS: Total Protein,Pleural Fluid 3.6 gm/dL
[2018-12-06 16:37] LABS: Lymphocytes,Pleural Fluid 80 %; Mesothelial,Pleural Fluid 2 %; Monocytes,Pleural Fluid 14 %; Neutrophils,Pleural Fluid 1 %; RBC,Pleural Fluid 1450 /mm3 (0-0)
--- NOTE | 2018-12-06 17:35 | P.PNIM ---
Subjective Interval history: 68-year-old female admitted with shortness of breath and finding of a complete opacification of the left lung field with 7 cm mass in the mediastinum and moderate left pleural effusion and diffuse lung consolidation Patient going for interventional radiology thoracentesis today Patient seen and examined, still short of breath but denies chest pain no nausea vomiting, no sputum production Physical Exam Vital signs: Vital Signs 12/05/18 17:50 12/05/18 20:00 12/05/18 22:25 Temperature 98.6 F 98.5 F 98.3 F Pulse Rate 93 H 93 H 95 H Respiratory Rate 17 16 16 Blood Pressure 175/83 H 160/75 H 180/82 H Pulse Oximetry 97 95 95 12/06/18 00:00 12/06/18 03:15 12/06/18 04:00 Temperature 97.9 F Pulse Rate 83 86 81 Respiratory Rate 16 Blood Pressure 149/69 H Pulse Oximetry 94 L 12/06/18 07:24 12/06/18 11:26 12/06/18 13:04 Temperature 97.9 F 97.9 F Pulse Rate 77 76 80 Respiratory Rate 18 16 16 Blood Pressure 150/73 H 170/75 H Pulse Oximetry 95 95 Intake & Output 12/05/18 12/06/18 12/06/18 18:59 06:59 18:59 Intake Total 500 / 500 1240 / 1240 Balance 500 / 500 1240 / 1240 Weight 63.7 kg 63.8 kg Intake: IV 500 / 500 1000 / 1000 NS Inj 1,000 ML @ 80 mls/hr IV. 1000 / 1000 CONT .[id number] CHRISTIANO Rx#: [id number] NS Inj 500 ML @ 1000 mls/hr IV. 500 / 500 SIG BOLUS CHRISTIANO Rx#:[id number] Oral 240 / 240 Other: # Voids 3 Date of Last Bowel Movement 12/04/18 12/04/18 Weight On Admission 63.7 kg Narrative: Pleasant well-developed malnourished 68-year-old white female Awake alert oriented no acute distress Heart S1-S2 regular Lungs diminished breath sounds left, right clear Abdomen soft nondistended positive bowel sounds Extremities no clubbing cyanosis no edema Results Labs CBC & Chem 7: 12/06/18 06:59 12/06/18 05:59 Imaging Imaging: Impressions Chest X-Ray 12/06/18 00:00 CONCLUSION: No pneumothorax identified post left thoracentesis. Assessment and Plan Plan 7CM OBSTRUCTING LEFT HILAR LUNG MASS w post obstructive consolidation/ atelectasis of left lung -7mm RUL nodule, PLEURAL EFFUSION suspected paraneoplastic - for thorascentesis today HYPOTHYROIDISM - tsh stable, on synthroid, THYROID ENLARGEMENT and MASSES noted on cta - NIDDM - diabetic diet and iss, resume janumet when contrast imaging/whalen complete , cta done on admit home metformin HTN - uncontrolled cont lisinopril and titrate as needed DYSLIPIDEMIA - resume atorvastatin CVA - old r basal gangliar infarct on ct head - for mri brain r/u mets, resume asa, statin when stable WEIGHT LOSS/ANOREXIA mild prot mary malnutrition due to above- nutrition consult dvt prophylaxis - scd for now, start sc hep after procedures dispo - home pending clinical course/workup complete. Progress Note: Quality VTE Deep Vein Thrombosis/Pulmonary Embolism Present on Admission: No
[2018-12-07] MEDS: Sod Chloride 0.9% Inj 1,000 ML IV.CONT SCH ×3 (05:33→23:45)
[2018-12-07] MEDS: Insulin NovoLOG Aspart Correctional Sugar Inj SQ SCH ×4 (07:54→21:59)
[2018-12-07 08:01] LABS: Baso % (Auto) 0.4 % (0.0-2.0); Eos # (Auto) 0.1 th/mm3 (0.0-0.4); Eos % (Auto) 0.9 % (0.0-4.0); Hematocrit 38.9 % (35.0-46.0); Hemoglobin 12.7 gm/dL (11.6-15.3); Lymph # (Auto) 1.4 th/mm3 (1.0-4.8); Lymph % (Auto) 13.8 % (9.0-44.0); Mean Corpuscular HGB Conc 32.7 % (32.0-36.0); Mean Corpuscular Hemoglobin 27.3 pg (27.0-34.0); Mean Corpuscular Volume 83.5 fL (80.0-100.0); Mean Platelet Volume 9.7 fL (7.0-11.0); Mono # (Auto) 0.9 th/mm3 (0.0-0.9); Mono % (Auto) 8.4 % (0.0-8.0); Neut # (Auto) 7.8 th/mm3 (1.8-7.7); Neut % (Auto) 76.5 % (16.0-70.0); Platelet Count 257 th/mm3 (150-450); Red Blood Count 4.66 mil/mm3 (4.00-5.30); Red Cell Distribution Width 15.4 % (11.6-17.2); White Blood Count 10.2 th/mm3 (4.0-11.0)
[2018-12-07 08:31] LABS: Albumin 3.1 g/dL (3.4-5.0); Anion Gap 9 meq/L (5-15); Aspartate Aminotransferase 10 U/L (15-37); Blood Urea Nitrogen 5 mg/dL (7-18); Calcium 8.6 mg/dL (8.5-10.1); Carbon Dioxide 27.9 meq/L (21.0-32.0); Chloride 104 meq/L (98-107); Glomerular Filtration Rate Greater Than 89 mL/min (>89); Glucose,Random 138 mg/dL (74-106); Potassium 3.3 meq/L (3.5-5.1); Sodium 141 meq/L (136-145)
[2018-12-07 08:32] LABS: Alanine Aminotransferase 20 U/L (10-53)
[2018-12-07 08:36] LABS: Alkaline Phosphatase 56 U/L (45-117); Total Protein 6.9 g/dL (6.4-8.2)
[2018-12-07] MEDS ORDERED: Succinylcholine Inj 100 MG/5 ML Syringe IV.PUSH ONE (10:16)
[2018-12-07] MEDS ORDERED: Glycopyrrolate Inj 1 MG/5 ML Syringe IV.PUSH ONE (10:16)
[2018-12-07] MEDS ORDERED: Lidocaine PF 1% Inj 5 ML Syringe OTHER ONE (10:16)
[2018-12-07] MEDS ORDERED: fentaNYL Citrate Inj 100 MCG/2 ML Ampul ONE (10:55)
[2018-12-07] MEDS ORDERED: Labetalol HCl Inj 20 MG/4 ML Vial ONE (11:08)
--- NOTE | 2018-12-07 11:30 | MP ---
cc: Chino Hernández MD DATE OF OPERATION: 12/07/2018 PROCEDURE: Fiberoptic bronchoscopy with biopsy, brushings, and washings. PREOPERATIVE DIAGNOSIS: Left lung mass. POSTOPERATIVE DIAGNOSIS: Left lung mass with bronchial obstruction. ANESTHESIA: General with intubation. SURGEON: Chino Hernández MD. PROCEDURE AND FINDINGS: After informed consent was obtained, the description of risks of bronchoscopy including bleeding, pneumothorax, respiratory failure, etc., the patient was sedated and intubated under general anesthesia. The Olympus IT 180 bronchoscope was used to visualize the bronchi and the scope was advanced through the endotracheal tube into the trachea. The trachea and keyona appeared normal. The scope was then introduced into the right mainstem and right upper lobe segmental bronchi. These bronchi demonstrated no gross endobronchial lesions. Next the right middle and lower lobe segmental bronchi were visualized, which demonstrated no endobronchial lesions. There were few mucoid secretions, which were suctioned out and saline washings were done. The scope was then advanced towards the left main stem bronchus. The left mainstem bronchus, at around 4 cm from the keyona, showed an irregular fleshy lesion almost completely occluding the left mainstem, extending towards the left upper and lower lobe segmental bronchi. The lesion was friable and bled easily to touch. Brushings were done from here for cytology and minimal bleeding was observed. Biopsies were done from here and bleeding was controlled with cold saline and saline washings. Saline lavage was carried out until clear. The procedure was then terminated. The patient tolerated the procedure well. Chino Hernández MD VJD/rs , 10:44 AM , 10:53 AM
--- NOTE | 2018-12-07 11:32 | XR ---
EXAM DATE: 12/07/2018 11:29 AM EST AGE/SEX: 68 years / Female INDICATIONS: Post bronchoscopy. CLINICAL DATA: This is the patient's subsequent encounter. Patient reports that signs and symptoms h ave been present for 3 days and indicates a pain score of 0/10. MEDICAL/SURGICAL HISTORY: . Diverticulitis. Diabetes. Hypothyroidism. . Cholecystectomy. Tons illectomy. COMPARISON: [facility] [place], CHEST EXPIRATION ONLY, 12/06/2018. . FINDINGS: Persistent pleural fluid, consolidation and volume loss on the left, not significantly changed. Right lung remains reasonably clear. No pneumothorax demonstrated. CONCLUSION: 1. Persistent consolidation, pleural effusion and volume loss on the left. 2. No pneumothorax. Electronically signed by: Sameer Ruiz MD Board Certified Radiologist 12/07/2018 11:31 AM EST
[2018-12-07] MEDS ORDERED: RESP: Lidocaine PF 4% 5 ML Neb ONE (11:48)
[2018-12-07] MEDS ORDERED: RESP: Lidocaine PF 4% 5 ML Neb NEB ONE (12:00)
--- NOTE | 2018-12-07 13:48 | P.PNONC ---
Subjective Interval history: Patient sitting up in bed receiving breathing treatment. Status post bronchoscopy this morning, denies any chest pain or shortness of breath. Reports that she has eaten some fruit for lunch today. Denies any nausea/ vomiting or diarrhea, last bowel movement yesterday. Objective Vital Signs/Intake & Output: Vital Signs 12/06/18 16:00 12/06/18 19:00 12/06/18 20:00 Temperature 97.7 F Pulse Rate 89 79 86 Respiratory Rate 14 16 Blood Pressure 121/64 Pulse Oximetry 94 L 12/06/18 23:45 12/07/18 00:00 12/07/18 03:30 Temperature 97.5 F L 97.9 F Pulse Rate 96 H 99 H 84 Respiratory Rate 15 16 Blood Pressure 124/70 169/80 H Pulse Oximetry 95 94 L 12/07/18 04:00 12/07/18 08:00 12/07/18 09:30 Temperature 98.2 F 98.8 F Pulse Rate 86 92 H 95 H Respiratory Rate 18 18 Blood Pressure 168/87 H 150/84 H Pulse Oximetry 93 L 94 L 12/07/18 10:51 12/07/18 11:00 12/07/18 11:15 Temperature 98.1 F Pulse Rate 125 H 125 H 101 H Respiratory Rate 11 L 22 25 H Blood Pressure 160/86 H 163/71 H 133/83 Pulse Oximetry 100 100 100 12/07/18 11:30 12/07/18 11:45 12/07/18 12:00 Temperature 98.2 F Pulse Rate 101 H 97 H 103 H Respiratory Rate 20 25 H Blood Pressure 146/70 H 125/56 L Pulse Oximetry 100 98 12/07/18 13:16 Temperature Pulse Rate 80 Respiratory Rate 20 Blood Pressure Pulse Oximetry Intake & Output 12/06/18 12/07/18 12/07/18 18:59 06:59 18:59 Intake Total 1000 / 1000 1240 / 1240 Balance 1000 / 1000 1240 / 1240 Weight 63.2 kg Intake: IV 1000 / 1000 1000 / 1000 NS Inj 1,000 ML @ 80 mls/hr IV. 1000 / 1000 1000 / 1000 CONT .[id number] FANNY Rx#: [id number] Oral 240 / 240 Other: # Voids 3 Date of Last Bowel Movement 12/04/18 Result Diagrams: 12/07/18 07:42 12/07/18 07:12 Laboratory Results: Laboratory Results - last 24 hr 12/06/18 12/06/18 12/06/18 14:10 14:10 16:26 WBC RBC Hgb Hct MCV MCH MCHC RDW Plt Count MPV Neut % (Auto) Lymph % (Auto) Barren % (Auto) Eos % (Auto) Baso % (Auto) Neut # (Auto) Lymph # (Auto) Barren # (Auto) Eos # (Auto) Baso # (Auto) WBC Differential Differential Comment Sodium Potassium Chloride Carbon Dioxide Anion Gap BUN Creatinine Estimated GFR POC Glucose 146 H Random Glucose Calcium Total Bilirubin AST ALT Alkaline Phosphatase Total Protein Albumin Pleural pH 8.0 Pleural RBC 1450 H Pleural Nuc Cells 3263 H Pleural Neutrophils 1 Pleural Lymphocytes 80 Pleural Monocytes 14 Pleural Histocytes 2 Pleural Mesothelial 2 Pleural Fluid Comment Pleural Total Protein 3.6 Pleural LDH 101 Pleural Glucose 147 Pleural Amylase 59 12/06/18 12/07/18 12/07/18 19:30 07:12 07:19 WBC RBC Hgb Hct MCV MCH MCHC RDW Plt Count MPV Neut % (Auto) Lymph % (Auto) Barren % (Auto) Eos % (Auto) Baso % (Auto) Neut # (Auto) Lymph # (Auto) Barren # (Auto) Eos # (Auto) Baso # (Auto) WBC Differential Differential Comment Sodium 141 Potassium 3.3 L Chloride 104 Carbon Dioxide 27.9 Anion Gap 9 BUN 5 L Creatinine 0.43 L Estimated GFR Greater than 89 POC Glucose 197 H 145 H Random Glucose 138 H Calcium 8.6 Total Bilirubin 0.4 AST 10 L ALT 20 Alkaline Phosphatase 56 Total Protein 6.9 Albumin 3.1 L Pleural pH Pleural RBC Pleural Nuc Cells Pleural Neutrophils Pleural Lymphocytes Pleural Monocytes Pleural Histocytes Pleural Mesothelial Pleural Fluid Comment Pleural Total Protein Pleural LDH Pleural Glucose Pleural Amylase 12/07/18 12/07/18 07:42 11:19 WBC 10.2 RBC 4.66 Hgb 12.7 Hct 38.9 MCV 83.5 MCH 27.3 MCHC 32.7 RDW 15.4 Plt Count 257 MPV 9.7 Neut % (Auto) 76.5 H Lymph % (Auto) 13.8 Barren % (Auto) 8.4 H Eos % (Auto) 0.9 Baso % (Auto) 0.4 Neut # (Auto) 7.8 H Lymph # (Auto) 1.4 Barren # (Auto) 0.9 Eos # (Auto) 0.1 Baso # (Auto) 0.0 WBC Differential . Differential Comment Auto diff final Sodium Potassium Chloride Carbon Dioxide Anion Gap BUN Creatinine Estimated GFR POC Glucose 158 H Random Glucose Calcium Total Bilirubin AST ALT Alkaline Phosphatase Total Protein Albumin Pleural pH Pleural RBC Pleural Nuc Cells Pleural Neutrophils Pleural Lymphocytes Pleural Monocytes Pleural Histocytes Pleural Mesothelial Pleural Fluid Comment Pleural Total Protein Pleural LDH Pleural Glucose Pleural Amylase Culture Results: Microbiology 12/06/18 14:10 Fungal Smear - Final Abscess - Chest No fungal elements seen 12/06/18 14:10 Gram Stain - Final Fluid - Pleural fluid Body Fluid Culture - Preliminary No growth in 24 hours Imaging Studies: Impressions Chest X-Ray 12/06/18 00:00 CONCLUSION: No pneumothorax identified post left thoracentesis. Chest X-Ray 12/07/18 10:40 CONCLUSION: 1. Persistent consolidation, pleural effusion and volume loss on the left. 2. No pneumothorax. Medications: Active Medications Generic Name Dose Route Start Last Admin Trade Name Freq PRN Reason Stop Dose Admin Hydrocodone Bitart/Acetaminophen 1 tab 12/05/18 14:32 12/06/18 17:35 [place] 10/325 PO 1 tab Q4H PRN Administration Pain 7 to 10 Albuterol 1 ampul 12/06/18 14:00 12/07/18 13:15 Duoneb Neb (Fanny) NEB 1 ampul Q6HR WHILE AWAKE NEB FANNY Administration Albuterol 1 ampul 12/06/18 11:28 12/07/18 11:28 Duoneb Neb (Prn) NEB 1 ampul Q2HR NEB PRN Administration DYSPNEA Clonidine HCl 0.1 mg 12/05/18 19:42 12/05/18 23:12 Catapres PO 0.1 mg Q6H PRN Administration SBP>180, DBP>110 Sodium Chloride 1,000 mls @ 80 mls/hr 12/05/18 14:45 12/07/18 05:33 Ns Inj IV.CONT 80 mls/hr .[id number] FANNY Administration Sodium Chloride 500 mls @ 30 mls/hr 12/06/18 08:00 12/06/18 10:12 Ns Inj IV.SIG Not Given .Q10H FANNY Insulin Aspart 0 unit 12/05/18 17:00 12/07/18 11:59 Novolog Insulin Correctional Sugar Inj SQ Not Given ACHS [facility] Protocol Sodium Chloride 2 ml 12/05/18 21:00 12/07/18 09:04 Ns Flush IV.FLUSH Not Given BID [facility] Objective Remarks: GENERAL: Well-nourished, well-developed female patient, in no acute distress. SKIN: Pale, warm and dry. Dressing noted to left lateral back dry and intact. HEAD: Normocephalic. EYES: No scleral icterus. No injection or drainage. NECK: Supple, trachea midline. CARDIOVASCULAR: Regular rate and rhythm without murmurs. RESPIRATORY: Posterior breath sounds clear and equal bilateral. Nonlabored. Receiving breathing treatment. GASTROINTESTINAL: Abdomen soft, non-tender, nondistended. EXTREMITIES: No cyanosis, or edema. MUSCULOSKELETAL: Adequate muscle tone. NEUROLOGICAL: No obvious focal deficit. Awake, alert, and oriented x3. PSYCHIATRIC: Appropriate mood and affect; insight and judgment normal. Assessment/Plan - Plan This is a 68-year-old female patient who was admitted to the hospital with a complaint of shortness of breath and weakness for the last couple of months. Imaging shows a large mass to the left hilar area extending to the mediastinum, with a complete whiteout of the left lung. Plan: 1. Lung mass, status post bronchoscopy. Cytology for thoracentesis and bronchoscopy pending. Plan to consult radiation oncology. 2. CBC and CMP in a.m. 3. Continue supportive measures. - Attending Statement The exam, history, and the medical decision-making described in the above note were completed with the assistance of the mid-level provider. I reviewed and agree with the findings presented. I attest that I had a [id number] encounter with the patient on the same day, and personally performed and documented my assessment and findings in the medical record. She did not offer any new complaint. She is n.p.o. for the bronchoscopy today Bronchoscopy findings noted. Multiple biopsies were obtained from endobronchial lesion in the left main bronchial stem Cytology from pleural fluid is pending Consult radiation oncology for palliative radiation to the lower left hilar/ endobronchial mass causing white out of left lung
--- NOTE | 2018-12-07 17:57 | P.PNIM ---
Subjective Interval history: 68-year-old female admitted with shortness of breath finding of complete opacification of left lung field with 7 cm mass in the mediastinum and moderate left pleural effusion and dense lung consolidation, status post thoracentesis yesterday, and bronchoscopy today hematology following and radiation oncology consult requested pt seen and examined, doing well s/p bronch, some sob but stable on ra, denies pain Physical Exam Vital signs: Vital Signs 12/06/18 19:00 12/06/18 20:00 12/06/18 23:45 Temperature 97.7 F 97.5 F L Pulse Rate 79 86 96 H Respiratory Rate 14 16 15 Blood Pressure 121/64 124/70 Pulse Oximetry 94 L 95 12/07/18 00:00 12/07/18 03:30 12/07/18 04:00 Temperature 97.9 F Pulse Rate 99 H 84 86 Respiratory Rate 16 Blood Pressure 169/80 H Pulse Oximetry 94 L 12/07/18 08:00 12/07/18 09:30 12/07/18 10:51 Temperature 98.2 F 98.8 F 98.1 F Pulse Rate 92 H 95 H 125 H Respiratory Rate 18 18 11 L Blood Pressure 168/87 H 150/84 H 160/86 H Pulse Oximetry 93 L 94 L 100 12/07/18 11:00 12/07/18 11:15 12/07/18 11:30 Temperature Pulse Rate 125 H 101 H 101 H Respiratory Rate 22 25 H 20 Blood Pressure 163/71 H 133/83 146/70 H Pulse Oximetry 100 100 100 12/07/18 11:45 12/07/18 12:00 12/07/18 13:16 Temperature 98.2 F Pulse Rate 97 H 103 H 80 Respiratory Rate 25 H 20 Blood Pressure 125/56 L Pulse Oximetry 98 12/07/18 16:00 Temperature 98.1 F Pulse Rate 101 H Respiratory Rate 17 Blood Pressure 145/78 H Pulse Oximetry 90 L Intake & Output 12/06/18 12/07/18 12/07/18 18:59 06:59 18:59 Intake Total 1000 / 1000 1240 / 1240 500 / 500 Balance 1000 / 1000 1240 / 1240 500 / 500 Weight 63.2 kg Intake: IV 1000 / 1000 1000 / 1000 500 / 500 NS Inj 1,000 ML @ 80 mls/hr IV. 1000 / 1000 1000 / 1000 500 / 500 CONT .[id number] CHRISTIANO Rx#: [id number] Oral 240 / 240 Other: # Voids 3 Date of Last Bowel Movement 12/04/18 Narrative: Pleasant well-developed malnourished 68-year-old white female Awake alert oriented no acute distress Heart S1-S2 regular tachycardic Lungs diminished breath sounds left, right clear Abdomen soft nondistended positive bowel sounds Extremities no clubbing cyanosis no edema Results Labs CBC & Chem 7: 12/07/18 07:42 12/07/18 07:12 Labs: Microbiology 12/06/18 14:10 Abscess - Chest Acid Fast Bacilli Smear - Final No acid fast bacilli seen 12/07/18 10:33 Bronchial - Bronchial Gram Stain - Final 12/06/18 14:10 Abscess - Chest Fungal Smear - Final No fungal elements seen 12/06/18 14:10 Fluid - Pleural fluid Gram Stain - Final 12/06/18 14:10 Fluid - Pleural fluid Body Fluid Culture - Preliminary No growth in 24 hours Imaging Imaging: Impressions Chest X-Ray 12/07/18 10:40 CONCLUSION: 1. Persistent consolidation, pleural effusion and volume loss on the left. 2. No pneumothorax. Assessment and Plan Plan 7CM OBSTRUCTING LEFT HILAR LUNG MASS w post obstructive consolidation/ atelectasis of left lung -7mm RUL nodule, s/p bronch, pulm and heme following, rad onc consult. 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 Progress Note: Quality VTE Deep Vein Thrombosis/Pulmonary Embolism Present on Admission: No
[2018-12-07] MEDS ORDERED: Lisinopril 5 MG Tablet PO SCH (18:15)
[2018-12-07] MEDS: Lisinopril 5 MG Tablet PO SCH (18:27)
[2018-12-08] MEDS: Sod Chloride 0.9% Inj 1,000 ML IV.CONT SCH ×2 (05:53→10:21)
[2018-12-08] MEDS: Lisinopril 5 MG Tablet PO SCH (08:13)
[2018-12-08] MEDS: Insulin NovoLOG Aspart Correctional Sugar Inj SQ SCH ×2 (08:14→12:01)
[2018-12-08] MEDS ORDERED: Folic Acid 1 MG Tablet PO SCH (09:00)
--- NOTE | 2018-12-08 09:15 | US ---
EXAM DATE: 12/06/2018 3:15 PM EST AGE/SEX: 68 years / Female INDICATIONS: Pleural effusion. CLINICAL DATA: This is the patient's initial encounter. Patient reports that signs and symptoms have been present for 2 days and indicates a pain score of 0/10. MEDICAL/SURGICAL HISTORY: Hypercholesterolemia. Hypothyroidism. Diverticulitis. Diabetes. T onsillectomy. Cholecystectomy. Adenoidectomy. COMPARISON: . FLUID: Total volume of 2,000 cc of estrada fluid was removed. Fluid was sent to lab for ordered studies. . . TECHNIQUE: Ultrasound guidance for thoracentesis. Thoracentesis. The risks, benefits, and alternatives to ultrasound guided thoracentesis were explained to the patien t in lay simple terms, including the risk of bleeding and infection. Written and verbal informed con sent was obtained. Appropriate area for left thoracentesis was marked under ultrasound guidance with the patient in the upright position. Overlying skin was prepped and draped in the usual sterile fashion and with local anesthetic, a dermatotomy was made with an 11 blade scalpel. A 6 Scottish thoracentesis catheter was p laced in the pleural space and fluid was removed. Catheter was then removed and a sterile dressing a pplied. There were no immediate complications. The patient tolerated the procedure well and the left the ultrasound suite in stable condition. Chest radiograph is to be obtained. FINDINGS: Adequate fluid for thoracentesis. CONCLUSION: 1. Uncomplicated thoracentesis. Electronically signed by: Trever Amaro MD Board Certified Radiologist 12/08/2018 9:14 AM EST
--- NOTE | 2018-12-08 09:50 | P.CON ---
History of Present Illness Service: Radiation oncology Consult date: 12/08/18 Requesting Physician: Anupama Tavares Primary Care Provider: Sidney Thompson Chief Complaint: Weight Loss, Dyspnea History of Present Illness: This is a 68-year-old, white female, with a history of heavy cigarette smoking , 1-2 packs a day for many years. She quit 2 years ago and has been doing e cigaretts. She presented to the emergency room complaining of shortness of breath and weakness. Due to this a medical workup was performed which included a CTA of the chest which showed a 7 cm mass in the left hilar area extending into the mediastinum with complete opacification of the left lung. Patient has undergone a biopsy and is pending. She also had a bronchoscopy performed which showed an endobronchial lesion almost occluding the mainstem bronchus. Patient denies any hemoptysis admits to a cough which is dry. Denies any bone pain. Metastatic disease. Her shortness of breath is aggravated by walking. At rest she has no shortness of breath. Patient admits to losing about 20 pounds of weight on the last 6 months. I have discussed this case today with Dr. Tavares. A consult has been placed for discussion of her therapy treatment options. Review of Systems Constitutional: Reports fatigue, Reports lack of energy, Reports weight loss Eyes: Denies blind spots, Denies blurry vision, Denies bulging eyes, Denies change in vision, Denies double vision, Denies discharge, Denies dry eyes, Denies floaters, Denies irritation, Denies itchy eyes, Denies loss of vision, Denies pain, Denies requires corrective lenses, Denies sensitivity to light, Denies other Ears, Nose, Mouth, and Throat: Denies abnormal hearing, Denies bleeding gums, Denies bad breath, Denies change in voice, Denies dental pain, Denies difficulty swallowing, Denies dizziness, Denies dry mouth, Denies ear discharge , Denies ear pain, Denies facial pain, Denies headache(s), Denies hearing loss, Denies hoarseness, Denies lip swelling, Denies nosebleed, Denies mouth lesions, Denies mouth pain, Denies nasal congestion, Denies nasal discharge, Denies nasal obstruction, Denies nasal trauma, Denies neck lump, Denies neck pain, Denies nose pain, Denies pain with swallowing, Denies poor balance, Denies post nasal drip, Denies ringing in the ears, Denies sinus pain, Denies sinus pressure , Denies sore throat, Denies throat swelling, Denies tongue swelling, Denies other Cardiovascular: Denies chest pain, Denies chest pain at rest, Denies chest pain with activity, Denies excessive sweating, Denies fainting, Denies fast heart rate, Denies foot swelling, Denies generalized swelling, Denies irregular heart rhythm, Denies leg pain with activity, Denies leg sores, Denies leg swelling, Denies lightheadedness, Denies radiating jaw, neck or arm pain, Denies rapid, pounding, or irregular heartbeat, Denies shortness of breath, Denies shortness of breath with activity, Denies shortness of breath when lying down, Denies shortness of breath causing sudden awakening, Denies slow heart rate, Denies other Respiratory: Reports cough, Reports pain with cough, Reports shortness of breath with activity Gastrointestinal: Denies abdominal pain, Denies belching, Denies black, tarry stools, Denies bloating, Denies bright, red blood in stools, Denies change in bowel habits, Denies constant urge to pass stool, Denies change in stools, Denies coffee ground vomit, Denies constipation, Denies cramping, Denies difficulty swallowing, Denies excessive passing of gas, Denies feeling full early, Denies heartburn, Denies incontinent of stools, Denies loose stools, Denies nausea, Denies pain with swallowing, Denies vomiting, Denies vomiting blood, Denies other Genitourinary: Denies abnormal periods, Denies abnormal vaginal bleeding, Denies absent period, Denies bleeding between periods, Denies blood in urine, Denies difficulty starting urination, Denies difficulty urinating, Denies dribbling after urination, Denies frequent nighttime urination, Denies genital itching, Denies genital lesions, Denies heavy periods, Denies hot flashes, Denies light periods, Denies nipple discharge, Denies painful intercourse, Denies painful periods, Denies painful urination, Denies pelvic pain, Denies prolapse symptoms, Denies sexual problems, Denies side pain, Denies urinary incontinence, Denies urinary urgency, Denies vaginal discharge, Denies vaginal dryness, Denies vaginal odor, Denies vaginal itching, Denies other Musculoskeletal: Denies abnormal walking, Denies back pain, Denies body aches, Denies decreased muscle mass, Denies deformity, Denies joint pain, Denies joint swelling, Denies limited joint movement, Denies loss of height, Denies muscle cramps, Denies muscle weakness, Denies neck pain, Denies numbness, Denies radiating pain into limb, Denies stiffness, Denies tingling, Denies other Skin/Breast: Denies acne, Denies bleeding lesions, Denies boil, Denies breast swelling, Denies breast skin changes, Denies breast pain, Denies breast lump, Denies change in breast shape, Denies change in hair, Denies change in skin color, Denies changing lesions, Denies dry skin, Denies excessive hair growth, Denies hair loss, Denies itching, Denies lesions, Denies nail changes, Denies new lesions, Denies nipple discharge, Denies non-healing lesions, Denies redness , Denies sensitivity to light, Denies rash, Denies skin pain, Denies skin ulcer , Denies sores, Denies stretch sanchez, Denies unusual bruising, Denies wounds, Denies yellowing of the skin, Denies other Neurologic: Denies abnormal hearing, Denies abnormal movements, Denies abnormal speech, Denies abnormal walking, Denies behavioral changes, Denies burning sensations, Denies confusion, Denies dizziness, Denies fainting, Denies frequent falls, Denies headache(s), Denies lack of coordination, Denies localized weakness, Denies loss of vision, Denies memory loss, Denies numbness, Denies other visual disturbances, Denies radiating pain, Denies restless legs, Denies convulsions, Denies seizure-like activity, Denies sensory deficit, Denies tingling, Denies tingling/numbness/burning sensations, Denies tremor(s), Denies unsteadiness, Denies weakness, Denies other Psychiatric: Denies abnormal sleep pattern, Denies anxiety, Denies behavioral changes, Denies change in appetite, Denies change in sex drive, Denies confusion , Denies depression, Denies difficulty concentrating, Denies hearing things others do not hear, Denies hopelessness, Denies irritability, Denies lack of enjoyment, Denies memory loss, Denies mood swings, Denies panic attacks, Denies paranoia, Denies seeing things others do not see, Denies sensing things others do not sense, Denies tactile hallucinations, Denies thoughts of hurting/killing others, Denies thoughts of hurting/killing yourself, Denies other Endocrine: Denies cold intolerance, Denies excessive sweating, Denies flushing, Denies heat intolerance, Denies increased hunger, Denies increased thirst, Denies increased urination, Denies rapid, pounding, or irregular heartbeat, Denies other Hematologic/Lymphatic: Denies easy bleeding, Denies easy bruising, Denies enlarged lymph nodes, Denies other Allergic/Immunologic: Denies GI upset with certain foods, Denies hives, Denies itchy eyes, Denies lip swelling, Denies seasonal runny nose, Denies throat swelling, Denies tongue swelling, Denies wheezing, Denies other PMFSH - History History Provided By: Patient, Family Member - Medical History Medical History: Medical History (Last Reviewed 12/05/18 @ 12:00 by Stephanie Howe MD) History of diverticulitis History of high cholesterol History of hypothyroidism Hx of diabetes mellitus - Surgical History Surgical History: Surgical History (Last Reviewed 12/05/18 @ 12:00 by Stephanie Howe MD) History of tonsillectomy and adenoidectomy Hx laparoscopic cholecystectomy - Family History Family History: Family History (Last Reviewed 12/05/18 @ 12:00 by Stephanie Howe MD) Father Coronary artery disease Other Osteoarthritis - Tobacco History Second Hand Smoke Exposure: No Tobacco Use In Past 30 Days: Yes Smoking Status: Former smoker Tobacco Type: E-Cigarettes - Alcohol History How Often Do You Have a Drink Containing Alcohol: 2 to 4 times a month - Substance Use History Substance History: No History of Abuse - Travel History Recent Travel in the [place] Within the Last 8 Weeks: No Recent Travel Out of the Country Within the Last 8 Weeks: No - Immunization History Tetanus Immunization: <5 Years Hx Influenza Vaccine This Season: Yes Medications and Allergies Active Medications: Active Medications Acetaminophen (Tylenol) 650 mg PO Q4H PRN PRN Reason: Temp > 100.4 Hydrocodone Bitart/Acetaminophen ([place] 10/325) 1 tab PO Q4H PRN PRN Reason: Pain 7 to 10 Last Admin: 12/06/18 17:35 Dose: 1 tab Hydrocodone Bitart/Acetaminophen ([place] 5/325) 1 tab PO Q4H PRN PRN Reason: Pain 3 to 6 Al Hydroxide/Mg Hydroxide (Milk Of Mandeep Liq) 30 ml PO Q12H PRN PRN Reason: Mild Constipation Albuterol (Duoneb Neb (Fanny)) 1 ampul NEB Q6HR WHILE AWAKE NEB [facility] Last Admin: 12/08/18 07:57 Dose: 1 ampul Albuterol (Duoneb Neb (Prn)) 1 ampul NEB Q2HR NEB PRN PRN Reason: DYSPNEA Last Admin: 12/07/18 11:28 Dose: 1 ampul Albuterol (Albuterol Neb (Prn)) 2.5 mg NEB UNSCH PRN PRN Reason: SHORTNESS OF BREATH Stop: 12/08/18 10:40 Atorvastatin Calcium (Lipitor) 40 mg PO QPM FANNY Clonidine HCl (Catapres) 0.1 mg PO Q6H PRN PRN Reason: SBP>180, DBP>110 Last Admin: 12/05/18 23:12 Dose: 0.1 mg Cyanocobalamin (Vitamin B12) 500 mcg PO DAILY [facility] Last Admin: 12/08/18 08:12 Dose: 500 mcg Dextrose (D50w Vial) 50 ml IV.PUSH UNSCH PRN PRN Reason: PER HYPOGLYCEMIA PROTOCOL Folic Acid (Folic Acid) 1 mg PO DAILY [facility] Last Admin: 12/08/18 08:13 Dose: 1 mg Glucagon (Glucagon Inj) 1 mg OTHER PRN PRN PRN Reason: for Hypoglycemia Protocol Sodium Chloride (Ns Inj) 1,000 mls @ 80 mls/hr IV.CONT .[id number] [facility] Last Admin: 12/08/18 05:53 Dose: Not Given Sodium Chloride (Ns Inj) 500 mls @ 30 mls/hr IV.SIG .Q10H [facility] Last Admin: 12/06/18 10:12 Dose: Not Given Insulin Aspart (Novolog Insulin Correctional Sugar Inj) 0 unit SQ ACHS [facility]; Protocol Last Admin: 12/08/18 08:14 Dose: Not Given Levothyroxine Sodium (Synthroid) 25 mcg PO DAILY@0600 [facility] Last Admin: 12/08/18 06:06 Dose: 25 mcg Lisinopril (Prinivil) 5 mg PO DAILY [facility] Last Admin: 12/08/18 08:13 Dose: 5 mg Miscellaneous Information ([facility] Nursing Information) 1 each OTHER UNSCH PRN PRN Reason: SEE LABEL COMMENTS Stop: 12/08/18 10:51 Multivitamins (Theragran) 1 tab PO DAILY [facility] Last Admin: 12/08/18 08:13 Dose: 1 tab Ondansetron HCl (Zofran Inj) 4 mg IV.PUSH Q6H PRN PRN Reason: NAUSEA OR VOMITING Pantoprazole Sodium (Protonix) 40 mg PO DAILY [facility] Last Admin: 12/08/18 08:12 Dose: 40 mg Sodium Chloride (Ns Flush) 2 ml IV.FLUSH PRN PRN PRN Reason: FLUSH AFTER USING IV ACCESS Sodium Chloride (Ns Flush) 2 ml IV.FLUSH BID [facility] Last Admin: 12/08/18 08:14 Dose: 2 ml Sodium Chloride (Ns Flush) 2 ml IV.FLUSH PRN PRN PRN Reason: FLUSH AFTER USING IV ACCESS Allergies Allergy/AdvReac Type Severity Reaction Status Date / Time Penicillins Allergy Severe Rash Verified 12/05/18 11:36 Home Medications Medication Instructions Recorded Confirmed Type aspirin [Aspir-Low] 81 mg PO DAILY 12/05/18 12/05/18 History atorvastatin 40 mg PO QPM 12/05/18 12/05/18 History calcium carbonate-vitamin D3 12/05/18 History [Calcium 600 + D(3)] levothyroxine 25 mcg PO DAILY 12/05/18 12/05/18 History lisinopril 5 mg PO DAILY 12/05/18 12/05/18 History multivitamin 1 tab PO DAILY 12/05/18 12/05/18 History omeprazole 40 mg PO DAILY 12/05/18 12/05/18 History sitagliptin-metformin [Janumet] 1 tab PO BID 12/05/18 12/05/18 History vitamin Y18-prtix acid 1 tab PO DAILY 12/05/18 12/05/18 History Physical Exam Vital signs: Vital Signs 12/07/18 09:30 12/07/18 10:51 12/07/18 11:00 Temperature 98.8 F 98.1 F Pulse Rate 95 H 125 H 125 H Respiratory Rate 18 11 L 22 Blood Pressure 150/84 H 160/86 H 163/71 H Pulse Oximetry 94 L 100 100 12/07/18 11:15 12/07/18 11:30 12/07/18 11:45 Temperature 98.2 F Pulse Rate 101 H 101 H 97 H Respiratory Rate 25 H 20 25 H Blood Pressure 133/83 146/70 H 125/56 L Pulse Oximetry 100 100 98 12/07/18 12:00 12/07/18 13:16 12/07/18 16:00 Temperature 98.1 F Pulse Rate 103 H 80 101 H Respiratory Rate 20 17 Blood Pressure 145/78 H Pulse Oximetry 90 L 12/07/18 19:00 12/07/18 19:53 12/07/18 20:00 Temperature 98.6 F Pulse Rate 93 H 102 H 101 H Respiratory Rate 16 16 Blood Pressure 145/81 H Pulse Oximetry 94 L 12/08/18 00:00 12/08/18 00:01 12/08/18 03:51 Temperature 98.5 F Pulse Rate 97 H 86 80 Respiratory Rate 16 Blood Pressure 152/70 H Pulse Oximetry 95 12/08/18 04:00 12/08/18 07:58 12/08/18 08:00 Temperature 98.5 F 97.7 F Pulse Rate 99 H 81 73 Respiratory Rate 16 16 18 Blood Pressure 151/80 H 172/79 H Pulse Oximetry 93 L 94 L 94 L Intake & Output 12/07/18 12/08/18 12/08/18 18:59 06:59 18:59 Intake Total 860 / 860 740 / 740 Balance 860 / 860 740 / 740 Weight 65.1 kg Intake: IV 500 / 500 500 / 500 NS Inj 1,000 ML @ 80 mls/hr IV. 500 / 500 500 / 500 CONT .[id number] [facility] Rx#: [id number] Oral 360 / 360 240 / 240 Other: # Voids 3 2 # Bowel Movements 0 - Constitutional no acute distress, average body habitus, cooperative - Routine HEENT Exam Head: Present: normocephalic, atraumatic Eye: Present: EOMI, PERRL ENT: Present: mucous membranes moist, external ear normal - Routine Neck Exam Present: supple - Routine Respiratory Exam Comments: To auscultation lungs are clear to auscultation. There is decreased ventilatory inspiratory effort of the left lung. - Routine Cardiovascular Exam Comments: Heart was regular rate and rhythm with no murmurs - Routine Abdominal Exam Present: soft - Routine Extremities Exam Comments: No lower extremity edema detected. - Routine Skin Exam Present: intact - Routine Neurological Exam Present: alert, oriented X3, moving all extremities, vision grossly intact, hearing grossly intact, normal speech - Routine Psychiatric Exam Present: normal affect, normal thought process, cooperative, good insight, good judgment Results - Labs CBC & Chem 7: 12/07/18 07:42 12/07/18 07:12 Labs: Laboratory Results - last 24 hr 12/07/18 12/07/18 12/07/18 11:19 17:09 20:03 POC Glucose 158 H 227 H 206 H 12/08/18 07:25 POC Glucose 143 H - Imaging Impressions Thoracentesis Ultrasound 12/06/18 00:00 CONCLUSION: 1. Uncomplicated thoracentesis. Chest X-Ray 12/07/18 10:40 CONCLUSION: 1. Persistent consolidation, pleural effusion and volume loss on the left. 2. No pneumothorax. CT of the brain 12/05/2018: CONCLUSION: 1. Cerebral atrophy and chronic ischemic small vessel vasculopathy. 2. Old right basal ganglia lacunar infarct. CTA of the chest 12/05/2018: CONCLUSION: 1. Large central obstructing mass left hilar region extending into the mediastinum measuring over 7 cm in dimension. 2. Consolidation/atelectasis of almost the entire left lung. 3. Small to moderate left pleural effusion. 4. No pulmonary embolism. Assessment and Plan - Assessment (1) Lung mass Code(s): R91.8 - Other nonspecific abnormal finding of lung field Status: Acute - Plan Assessment: 68-year-old white female with diagnosis of locally advanced lung carcinoma. Patient been evaluated for possible radiotherapy treatment options. Plan: Had extensive discussion with the patient in regards to her current condition. I have discussed this case with Dr. Tavares today. At this point I have offered the patient 2 options one would be to move forward with salvage radiotherapy at this point to try to open up the lung and area of the lung. Once she is discharged, then we will proceed forward with a PET scan and if disease remains localized then move forward with concomitant chemoradiotherapy if the patient is eligible for this. She understands of the radiation doses and feels may have to be adjusted, but if we start radiation now at least will gain some time and see if we can open up the lung. This will help with her cough as well as her shortness of breath and will prevent hemoptysis since she has a friable mass in the area. I personally reviewed the CTA of the chest. I discussed with the patient the merits of the radiation therapy. We discussed side effects and complications. Side effects to the lung to include but limited to: Weakness and fatigue, decreased blood counts, erythema the skin, necrosis of skin, pain of the treated area, bone damage and fracture, costochondritis, lung damage, lung fibrosis, lung pneumonitis, the possibility becoming oxygen dependent, the possibility of becoming pulmonary cripple, heart damage, spinal cord damage, difficulty and pain with swallowing, esophageal strictures which may require dilation, brachial plexus damage. Patient understands that if he now I will be doing it based on clinical suspicions of malignancy as I do not have the pathology report at this point. She agrees to move forward with radiotherapy without a pathology report based on clinical suspicions. She understands that I could be treating something that is nonmalignant and accepts the risk. Patient is to come to our department for simulation and treatment planning. She was advised if I could be of any further assistance at the please let me know. I have placed an order for the PET scan to be performed as well as the pulmonary function test. This is an acutely ill patient that needs treatment to improve her quality of life, increased survival and increased local control. I have reviewed Dr. Tavares's note from 12/05/2018 where he recommends radiation oncology evaluation.
--- NOTE | 2018-12-08 12:02 | P.DS ---
DS: Providers Date of admission: 12/05/18 14:37 Primary care physician: Sidney Thompson Consults: 12/05/18 14:37 Consult to Oncology Routine Consulting Provider: Anupama Tavares Reason for Consultation: lung white out with plural effusion and 7cm mediastinal mass Notified:: Service Spoke with:: Kathy Date Notified:: 12/05/18 Time Notified:: 14:50 Ordering Provider: ZAY Consult to Pulmonology Routine Consulting Provider: Jerson Galindo Reason for Consultation: lung white out with plural effusion and 7cm mediastinal mass Notified:: Service Spoke with:: Kathy Date Notified:: 12/05/18 Time Notified:: 14:44 Ordering Provider: ZAY 12/07/18 13:15 Consult to Radiation Oncology Routine Consulting Provider: Aleks Truong Reason for Consultation: Left hilar mass Notified:: Office Spoke with:: Niru Date Notified:: 12/07/18 Time Notified:: 13:44 Ordering Provider: RICK Brief History from admission: HPI as documented by the admitting physician: Mrs. Haines is a 68 year old female. She came to the hospital secondary to weakness and shortness of breath. Chest imaging shows complete whiteout of the left lung. Additional finding is a 7 cm mass at the mediastinum which may be causing the left lung findings. She has a past history of smoking for the past 2 years she quit tobacco use and uses an e-cigarette. She has not experienced any chest pain. No abnormal rashes or lymphadenopathy. Weight loss has been approximate 30 pounds. No fevers. No diaphoresis. Patient update on day of discharge: Patient reports she is feeling okay today. She denies shortness of breath. Still has a dry cough. Stable on room air. Eager to go home. Case discussed with oncology and pulmonology. Okay for discharge to follow-up outpatient. She will have radiation simulation today. DS: Diagnosis Discharge Diagnosis (1) Lung mass: Status: Acute DS: Summary 68-year-old male with history of tobacco abuse admitted with shortness of breath. The patient was found to have a large, 7 cm obstructing left hilar lung mass which caused postobstructive consolidation and atelectasis of the left lung. She underwent bronchoscopy. Patient also underwent thoracentesis for pleural effusion that is likely paraneoplastic. Biopsy and cytology studies pending. Patient was followed by pulmonology, oncology and radiation oncology. The decision was made to proceed with radiation given the obstructive nature of the lesion. She will have simulation prior to discharge and will follow-up outpatient with oncology. Other conditions treated include: HYPOTHYROIDISM - tsh stable, on synthroid, enlarged thyroid noted on CT. Outpatient PET scan. NIDDM -resume home medications including metformin and Janumet on discharge. HTN -continue home medications on discharge DYSLIPIDEMIA -continue atorvastatin WEIGHT LOSS/ANOREXIA mild prot mayr malnutrition due to above- nutrition followed. Time Spent with Patient Total time spent providing and/or coordinating discharge services: Quality: VTE Deep Vein Thrombosis/Pulmonary Embolism Present on Admission: No Exam Narrative Exam Narrative: GENERAL: This is a well-nourished, well-developed patient, in no apparent distress. CARDIOVASCULAR: Normal rate and regular rhythm without murmurs, gallops, or rubs. RESPIRATORY: Good respiratory efforts. Diminished breath sounds on the left. Otherwise clear to auscultation. GASTROINTESTINAL: Abdomen soft, non-tender, non-distended. Normal active bowel sounds MUSCULOSKELETAL: Extremities without cyanosis, or edema. NEURO: Alert & Oriented x4 to person, place, time, situation. Moves all ext x4 PSYCH: Appropriate mood and affect. Results Labs on day of discharge: Labs from last 24 hours 12/08/18 12/08/18 12/07/18 11:46 07:25 20:03 POC Glucose 167 H 143 H 206 H 12/07/18 17:09 POC Glucose 227 H Preliminary micro results at discharge 12/06/18 14:10 Body Fluid Culture - Preliminary Fluid - Pleural fluid No growth in 48 hours Impressions ITS Impressions Head CT 12/05/18 11:56 CONCLUSION: 1. Cerebral atrophy and chronic ischemic small vessel vasculopathy. 2. Old right basal ganglia lacunar infarct. . . Chest CTA 12/05/18 12:30 CONCLUSION: 1. Large central obstructing mass left hilar region extending into the mediastinum measuring over 7 cm in dimension. 2. Consolidation/atelectasis of almost the entire left lung. 3. Small to moderate left pleural effusion. 4. No pulmonary embolism. Thoracentesis Ultrasound 12/06/18 00:00 CONCLUSION: 1. Uncomplicated thoracentesis. Chest X-Ray 12/07/18 10:40 CONCLUSION: 1. Persistent consolidation, pleural effusion and volume loss on the left. 2. No pneumothorax. Discharge Plan Discharge Disposition Patient Disposition: 01 Discharge Home Discharge Condition Condition: Stable Discharge Order Discharge Orders: Discharge Order (Routine); Ordered 12/08/18 Ordered By: Andrei Monsalve Discharge Details Discharge Comment: OK to DC home after simulation today. Follow up with Pulmonology, Oncology and radiation Oncology Physicians Team Primary Care Provider: Sidney Thompson Attending Provider: Andrei Monsalve Other Providers: Anupama Tavares ; Jerson Galindo ; Sameer Noble V ; Aleks Nassar Rxs /Orders / Referrals /Forms Prescriptions: New albuterol sulfate [ProAir HFA] 90 mcg/actuation HFA aerosol inhaler 1 inh INHALATION Q6H PRN (Reason: bronchospasm) Qty: 18 RF: 0 Continue multivitamin Tablet 1 tab PO DAILY RF: 0 atorvastatin 40 mg Tablet 40 mg PO QPM RF: 0 omeprazole 40 mg Capsule,Delayed Release(Dr/Ec) 40 mg PO DAILY RF: 0 aspirin [Aspir-Low] 81 mg Tablet,Delayed Release (Dr/Ec) 81 mg PO DAILY RF: 0 levothyroxine 25 mcg Tablet 25 mcg PO DAILY RF: 0 lisinopril 5 mg Tablet 5 mg PO DAILY RF: 0 vitamin Z67-lwvno acid 0.5-1 mg Tablet 1 tab PO DAILY RF: 0 calcium carbonate-vitamin D3 [Calcium 600 + D(3)] 600 mg calcium- 200 unit Capsule RF: 0 sitagliptin-metformin [Janumet] 50-1,000 mg Tablet 1 tab PO BID RF: 0 Referrals: Sidney Thompson MD [Primary Care Provider] - See Instructions Discharge Interventions Interventions: Discharge Planning - Case Management Last Done: 12/08/18 08:25 Status ED Status: Left Department
--- NOTE | 2018-12-08 12:15 | P.PN ---
Subjective Interval history: Post bronchoscopy patient is alert and in no distress No hemoptysis and off O2 saturation is 96. Seen by radiation oncology and medical oncology. PFT is pending and pathology from bronchial biopsy. Physical Exam Vital signs: Vital Signs 12/07/18 13:16 12/07/18 16:00 12/07/18 19:00 Temperature 98.1 F Pulse Rate 80 101 H 93 H Respiratory Rate 20 17 16 Blood Pressure 145/78 H Pulse Oximetry 90 L 12/07/18 19:53 12/07/18 20:00 12/08/18 00:00 Temperature 98.6 F 98.5 F Pulse Rate 102 H 101 H 97 H Respiratory Rate 16 16 Blood Pressure 145/81 H 152/70 H Pulse Oximetry 94 L 95 12/08/18 00:01 12/08/18 03:51 12/08/18 04:00 Temperature 98.5 F Pulse Rate 86 80 99 H Respiratory Rate 16 Blood Pressure 151/80 H Pulse Oximetry 93 L 12/08/18 07:58 12/08/18 08:00 Temperature 97.7 F Pulse Rate 81 94 H Respiratory Rate 16 18 Blood Pressure 172/79 H Pulse Oximetry 94 L 94 L Intake & Output 12/07/18 12/08/18 12/08/18 18:59 06:59 18:59 Intake Total 860 / 860 740 / 740 1000 / 1000 Balance 860 / 860 740 / 740 1000 / 1000 Weight 65.1 kg Intake: IV 500 / 500 500 / 500 1000 / 1000 NS Inj 1,000 ML @ 80 mls/hr IV. 500 / 500 500 / 500 1000 / 1000 CONT .[id number] [facility] Rx#: [id number] Oral 360 / 360 240 / 240 Other: # Voids 3 2 # Bowel Movements 0 GENERAL: Averagely built elderly white female alert. SKIN: Warm and dry. HEAD: Atraumatic. Normocephalic. EYES: Pupils equal and round. No scleral icterus. No injection or drainage. ENT: No nasal bleeding or discharge. Mucous membranes pink and moist. NECK: Trachea midline. No JVD. CARDIOVASCULAR: Regular rate and rhythm. RESPIRATORY: Decreased breath sounds left chest and scattered wheezes. GASTROINTESTINAL: Abdomen soft, non-tender, nondistended. Hepatic and splenic margins not palpable. MUSCULOSKELETAL: Extremities without clubbing, cyanosis, or edema. No obvious deformities. NEUROLOGICAL: Awake and alert. No obvious cranial nerve deficits. Motor grossly within normal limits. PSYCHIATRIC: Appropriate mood and affect; insight and judgment normal. Results - Labs CBC & Chem 7: 12/07/18 07:42 12/07/18 07:12 Laboratory Results - last 24 hr 12/07/18 12/07/18 12/08/18 17:09 20:03 07:25 POC Glucose 227 H 206 H 143 H 12/08/18 11:46 POC Glucose 167 H Microbiology 12/06/18 14:10 Fluid - Pleural fluid Gram Stain - Final 12/06/18 14:10 Fluid - Pleural fluid Body Fluid Culture - Preliminary No growth in 48 hours 12/06/18 14:10 Abscess - Chest Acid Fast Bacilli Smear - Final No acid fast bacilli seen 12/07/18 10:33 Bronchial - Bronchial Gram Stain - Final 12/06/18 14:10 Abscess - Chest Fungal Smear - Final No fungal elements seen - Imaging Impressions Thoracentesis Ultrasound 12/06/18 00:00 CONCLUSION: 1. Uncomplicated thoracentesis. Assessment and Plan - Assessment (1) Atelectasis Code(s): J98.11 - Atelectasis Status: Acute (2) COPD (chronic obstructive pulmonary disease) Code(s): J44.9 - Chronic obstructive pulmonary disease, unspecified Status: Acute (3) Lung mass Code(s): R91.8 - Other nonspecific abnormal finding of lung field Status: Acute (4) Pleural effusion on left Code(s): J90 - Pleural effusion, not elsewhere classified Status: Acute - Plan #1 DC O2 and keep sat over 92 2. Ventolin inhaler 2 puffs 4 times daily as needed 3. Symbicort 160 x 4.5 mcg 2 puffs twice daily 4. Okay to go home and come for outpatient follow-up in 2 weeks 5. Radiation oncology and medical oncology follow-up.
--- NOTE | 2018-12-08 14:54 | P.PNONC ---
Subjective Interval history: Patient seen earlier in the day Patient ambulating in room, her nurse reports she will be going to radiation simulation soon. Discussed with attending, she will be discharged after radiation simulation. Discussed with patient and she will be following up with radiation oncology and medical oncology as an outpatient. Objective Vital Signs/Intake & Output: Vital Signs 12/07/18 16:00 12/07/18 19:00 12/07/18 19:53 Temperature 98.1 F Pulse Rate 101 H 93 H 102 H Respiratory Rate 17 16 Blood Pressure 145/78 H Pulse Oximetry 90 L 12/07/18 20:00 12/08/18 00:00 12/08/18 00:01 Temperature 98.6 F 98.5 F Pulse Rate 101 H 97 H 86 Respiratory Rate 16 16 Blood Pressure 145/81 H 152/70 H Pulse Oximetry 94 L 95 12/08/18 03:51 12/08/18 04:00 12/08/18 07:58 Temperature 98.5 F Pulse Rate 80 99 H 81 Respiratory Rate 16 16 Blood Pressure 151/80 H Pulse Oximetry 93 L 94 L 12/08/18 08:00 12/08/18 12:00 Temperature 97.7 F 97.9 F Pulse Rate 94 H 97 H Respiratory Rate 18 18 Blood Pressure 172/79 H 177/85 H Pulse Oximetry 94 L 94 L Intake & Output 12/07/18 12/08/18 12/08/18 18:59 06:59 18:59 Intake Total 860 / 860 740 / 740 1200 / 1200 Balance 860 / 860 740 / 740 1200 / 1200 Weight 65.1 kg Intake: IV 500 / 500 500 / 500 1200 / 1200 NS Inj 1,000 ML @ 80 mls/hr IV. 500 / 500 500 / 500 1200 / 1200 CONT .[id number] [facility] Rx#: [id number] Oral 360 / 360 240 / 240 Other: # Voids 3 2 # Bowel Movements 0 Result Diagrams: 12/07/18 07:42 12/07/18 07:12 Laboratory Results: Laboratory Results - last 24 hr 12/07/18 12/07/18 12/08/18 17:09 20:03 07:25 POC Glucose 227 H 206 H 143 H 12/08/18 11:46 POC Glucose 167 H Culture Results: Microbiology 12/07/18 10:33 Gram Stain - Final Bronchial - Bronchial Bronchial Culture - Preliminary No growth in 24 hours 12/06/18 14:10 Gram Stain - Final Fluid - Pleural fluid Body Fluid Culture - Preliminary No growth in 48 hours 12/06/18 14:10 Acid Fast Bacilli Smear - Final Abscess - Chest No acid fast bacilli seen 12/06/18 14:10 Fungal Smear - Final Abscess - Chest No fungal elements seen Imaging Studies: Impressions Thoracentesis Ultrasound 12/06/18 00:00 CONCLUSION: 1. Uncomplicated thoracentesis. Medications: Active Medications Generic Name Dose Route Start Last Admin Trade Name Freq PRN Reason Stop Dose Admin Hydrocodone Bitart/Acetaminophen 1 tab 12/05/18 14:32 12/06/18 17:35 Wilber 10/325 PO 1 tab Q4H PRN Administration Pain 7 to 10 Albuterol 1 ampul 12/06/18 14:00 12/08/18 13:43 Duoneb Neb (Fanny) NEB Not Given Q6HR WHILE AWAKE NEB FANNY Albuterol 1 ampul 12/06/18 11:28 12/07/18 11:28 Duoneb Neb (Prn) NEB 1 ampul Q2HR NEB PRN Administration DYSPNEA Clonidine HCl 0.1 mg 12/05/18 19:42 12/05/18 23:12 Catapres PO 0.1 mg Q6H PRN Administration SBP>180, DBP>110 Cyanocobalamin 500 mcg 12/08/18 09:00 12/08/18 08:12 Vitamin B12 PO 500 mcg DAILY FANNY Administration Folic Acid 1 mg 12/08/18 09:00 12/08/18 08:13 Folic Acid PO 1 mg DAILY FANNY Administration Sodium Chloride 500 mls @ 30 mls/hr 12/06/18 08:00 12/06/18 10:12 Ns Inj IV.SIG Not Given .Q10H [facility] Insulin Aspart 0 unit 12/05/18 17:00 12/08/18 12:01 Novolog Insulin Correctional Sugar Inj SQ 2 unit ACHS [facility] Administration Protocol Levothyroxine Sodium 25 mcg 12/08/18 06:00 12/08/18 06:06 Synthroid PO 25 mcg DAILY@0600 [facility] Administration Lisinopril 5 mg 12/07/18 18:20 12/08/18 08:13 Prinivil PO 5 mg DAILY FANNY Administration Multivitamins 1 tab 12/08/18 09:00 12/08/18 08:13 Theragran PO 1 tab DAILY FANNY Administration Pantoprazole Sodium 40 mg 12/08/18 09:00 12/08/18 08:12 Protonix PO 40 mg DAILY FANNY Administration Sodium Chloride 2 ml 12/05/18 21:00 12/08/18 08:14 Ns Flush IV.FLUSH 2 ml BID [facility]ANNY Administration Objective Remarks: GENERAL: Well-nourished, well-developed female patient, in no acute distress. SKIN: Warm and dry. HEAD: Normocephalic. EYES: No scleral icterus. No injection or drainage. NECK: Supple, trachea midline. CARDIOVASCULAR: Regular rate and rhythm without murmurs. RESPIRATORY: Posterior breath sounds clear and equal bilateral. Nonlabored. GASTROINTESTINAL: Abdomen soft, non-tender, nondistended. EXTREMITIES: No cyanosis, or edema. MUSCULOSKELETAL: Adequate muscle tone. NEUROLOGICAL: No obvious focal deficit. Awake, alert, and oriented x3. PSYCHIATRIC: Appropriate mood and affect; insight and judgment normal. Assessment/Plan - Plan This is a 68-year-old female patient who was admitted to the hospital with a complaint of shortness of breath and weakness for the last couple of months. Imaging shows a large mass to the left hilar area extending to the mediastinum, with a complete whiteout of the left lung. Plan: 1. Lung mass, status post bronchoscopy. Cytology for thoracentesis and bronchoscopy pending. Radiation simulation today. 2. Patient cleared from an oncology standpoint for discharge after radiation simulation today. Patient to follow-up with radiation oncology and medical oncology in the outpatient setting. - Attending Statement The exam, history, and the medical decision-making described in the above note were completed with the assistance of the mid-level provider. I reviewed and agree with the findings presented. I attest that I had a [id number] encounter with the patient on the same day, and personally performed and documented my assessment and findings in the medical record. Patient denies any new complaint is at bedside Pathology report is still pending I have discussed the case with radiation oncologist Dr. Lombardo He will start the simulation and soon will begin radiation therapy as an outpatient Patient will need PET scan and MRI of the brain to stage for lung cancer Patient can be discharged from my standpoint I will see her in the office next week and will arrange for the staging studies plus the chemotherapy Patient and have asked several questions and these were answered to their satisfaction.
== END 2018-12-08 14:45 | disposition home or self-care (01) | DRG 181 ==
LOC: PHED 11:24 → PHEDA 14:37 → N04 17:25
PROVIDERS: ADMIT Family Medicine; ATTEND Family Medicine
DX: R22.2 Localized swelling, mass and lump, trunk; Z86.73 Personal history of transient ischemic attack (TIA), and cerebral infarction without residual deficits; J44.9 Chronic obstructive pulmonary disease, unspecified; E44.1 Mild protein-calorie malnutrition; J90 Pleural effusion, not elsewhere classified; E87.6 Hypokalemia; D49.89 Neoplasm of unspecified behavior of other specified sites; F17.290 Nicotine dependence, other tobacco product, uncomplicated; J98.11 Atelectasis; I10 Essential (primary) hypertension; Z79.82 Long term (current) use of aspirin; Z68.23 Body mass index [BMI] 23.0-23.9, adult; E78.5 Hyperlipidemia, unspecified; E78.00 Pure hypercholesterolemia, unspecified; E11.9 Type 2 diabetes mellitus without complications; C34.02 Malignant neoplasm of left main bronchus; E03.9 Hypothyroidism, unspecified; Z79.84 Long term (current) use of oral hypoglycemic drugs
CPT/HCPCS: 31625; 32555; 70450; 71010; 71020; 71045; 71046; 71275; 77334; 80053; 81001; 82150; 82945; 82948; 82962; 83615; 83735; 83986; 84155; 84157; 84443; 84484; 85025; 85610; 85730; 87015; 87070; 87102; 87116; 87205; 87206; 88112; 88305; 88341; 88342; 88343; 89051; 90760; 93005; 94640; 94664; 94665; 96360; 99222; 99285; C1729; G0461; G0462; J0330; J1100; J1815; J2250; J2405; J2704; J3010; J7030; J7040; Q9967